=== PATIENT | female | born 1980 | race Caucasian/White ===

== ENCOUNTER 2016-08-01 18:38 | Emergency (ER) | payer SELFPAY ==
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
[2016-08-01 23:43] VITALS: BP 106/76
== END 2016-08-01 22:52 | disposition home or self-care (01) ==
LOC: ER 18:38
DX: G89.29 Other chronic pain (principal); M54.5 Low back pain; M79.7 Fibromyalgia; J06.9 Acute upper respiratory infection, unspecified; R05 Cough; R09.89 Other specified symptoms and signs involving the circulatory and respiratory systems; Z88.6 Allergy status to analgesic agent; Z88.1 Allergy status to other antibiotic agents; Z88.5 Allergy status to narcotic agent; J45.909 Unspecified asthma, uncomplicated
CPT/HCPCS: 71020; 99283

== ENCOUNTER 2016-10-10 02:35 | Emergency (ER) | payer SELFPAY ==
[2016-10-10] MEDS ORDERED: ONDANSETRON HCL INJ/PF 4 MG/2 ML SDV IV ONE (07:55)
[2016-10-10] MEDS ORDERED: ACETAMINOPHEN 325 MG TABLET PO ONE (08:06)
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
[2016-10-10 08:31] LABS: ABSOLUTE EOSINOPHILS # (AUTO) 0.1 10^3/uL (0.0-0.6); ABSOLUTE LYMPHOCYTES (AUTO) 2.4 10^3/uL (0.5-4.7); ABSOLUTE MONOCYTES (AUTO) 0.6 10^3/uL (0.1-1.4); ABSOLUTE NEUT (AUTO) 4.9 10^3/uL (1.7-8.2); BASOPHILS % (AUTO) 0.5 % (0-2); EOSINOPHILS % (AUTO) 0.7 % (0-6); LYMPHOCYTES % (AUTO) 30.6 % (13-45); MEAN CORPUSCULAR HEMOGLOBIN 31.1 pg (27.0-33.4); MEAN CORPUSCULAR HGB CONC 34.1 g/dL (32.0-36.0); MEAN CORPUSCULAR VOLUME 91 fl (80-97); MONOCYTES % (AUTO) 7.2 % (3-13); RED BLOOD COUNT 4.18 10^6/uL (3.72-5.28); RED CELL DISTRIBUTION WIDTH 12.1 % (11.5-14.0)
[2016-10-10 08:46] LABS: ALANINE AMINOTRANSFERASE 22 U/L (9-52); ALKALINE PHOSPHATASE 60 U/L (38-126); ANION GAP 12 (5-19); ASPARTATE AMINO TRANSFERASE 15 U/L (14-36); BILIRUBIN,DIRECT 0.2 mg/dL (0.0-0.4); BILIRUBIN,TOTAL 0.3 mg/dL (0.2-1.3); BLOOD UREA NITROGEN 11 mg/dL (7-20); CALCIUM 9.2 mg/dL (8.4-10.2); CARBON DIOXIDE 25 mmol/L (22-30); CHLORIDE 107 mmol/L (98-107); GLUCOSE 95 mg/dL (75-110); LIPASE 176.6 U/L (23-300); POTASSIUM 4.5 mmol/L (3.6-5.0); SODIUM 143.7 mmol/L (137-145); TOTAL PROTEIN 6.8 g/dL (6.3-8.2)
[2016-10-10 11:06] VITALS: BP 90/73
== END 2016-10-10 10:45 | disposition home or self-care (01) ==
LOC: ER 02:35
DX: R11.2 Nausea with vomiting, unspecified (principal); M54.6 Pain in thoracic spine; Y04.2XXA Assault by strike against or bumped into by another person, initial encounter; Z88.6 Allergy status to analgesic agent; Z88.1 Allergy status to other antibiotic agents; Z88.5 Allergy status to narcotic agent; Z88.8 Allergy status to other drugs, medicaments and biological substances; J45.909 Unspecified asthma, uncomplicated
CPT/HCPCS: 99284; 96374; 36415; 83690; 85025; 80053; 72070; J2405

== ENCOUNTER 2016-10-30 00:05 | Emergency (ER) | payer SELFPAY ==
[2016-10-30] MEDS ORDERED: FENTANYL CITRATE INJ/PF 100 MCG/2 ML AMPUL IV ONE (00:48)
[2016-10-30] MEDS ORDERED: DIPH/PERTUSS(ACELL)/TETANUS VAC/PF 0.5 ML SYR (>=10YO) IM ONE (00:49)
[2016-10-30] MEDS ORDERED: LIDOCAINE 1%/EPINEPHRINE INJ 20 ML VIAL INJ ONE (00:49)
[2016-10-30] MEDS ORDERED: MIDAZOLAM 2 MG/2 ML INJ IV ONE (01:38)
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
[2016-10-30] MEDS ORDERED: ACETAMINOPHEN 325 MG TABLET PO ONE ×2 (03:39→11:23)
[2016-10-30 11:36] VITALS: BP 110/76
== END 2016-10-30 11:48 | disposition home or self-care (01) ==
LOC: ER 00:05
PROC: 0HQ1XZZ Repair Face Skin, External Approach (ICD-10-PCS; principal; 2016-10-30)
DX: S01.81XA Laceration without foreign body of other part of head, initial encounter (principal); R51 Headache; M25.531 Pain in right wrist; M79.641 Pain in right hand; W10.9XXA Fall (on) (from) unspecified stairs and steps, initial encounter; F10.129 Alcohol abuse with intoxication, unspecified; F41.9 Anxiety disorder, unspecified; J45.909 Unspecified asthma, uncomplicated; Z88.6 Allergy status to analgesic agent; Z88.1 Allergy status to other antibiotic agents; Z88.5 Allergy status to narcotic agent; Z88.8 Allergy status to other drugs, medicaments and biological substances
CPT/HCPCS: 99284; 96374; 73130; 73110; 70450; 72125; 12014; J2250; J3010; J3490

== ENCOUNTER 2016-11-30 15:27 | Emergency (ER) | payer SELFPAY ==
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
[2016-11-30 18:24] LABS: ABSOLUTE EOSINOPHILS # (AUTO) 0.1 10^3/uL (0.0-0.6); ABSOLUTE MONOCYTES (AUTO) 0.7 10^3/uL (0.1-1.4); ABSOLUTE NEUT (AUTO) 6.2 10^3/uL (1.7-8.2); BASOPHILS % (AUTO) 0.3 % (0-2); EOSINOPHILS % (AUTO) 0.7 % (0-6); HEMATOCRIT 43.3 % (36.0-47.0); HEMOGLOBIN 14.5 g/dL (12.0-15.5); HGB HCT DIFFERENCE 0.2; LYMPHOCYTES % (AUTO) 22.6 % (13-45); MEAN CORPUSCULAR HEMOGLOBIN 31.3 pg (27.0-33.4); MEAN CORPUSCULAR HGB CONC 33.6 g/dL (32.0-36.0); MEAN CORPUSCULAR VOLUME 93 fl (80-97); MONOCYTES % (AUTO) 7.4 % (3-13); RED BLOOD COUNT 4.64 10^6/uL (3.72-5.28)
[2016-11-30 18:28] LABS: APPEARANCE,URINE SLIGHTLY-CLOUDY; BILIRUBIN,URINE NEGATIVE (NEGATIVE); GLUCOSE, URINE NEGATIVE (NEGATIVE); KETONES,URINE NEGATIVE (NEGATIVE); LEUKOCYTE ESTERASE,URINE NEGATIVE (NEGATIVE); NITRITE,URINE NEGATIVE (NEGATIVE); PROTEIN,URINE NEGATIVE (NEGATIVE); URINE SPECIFIC GRAVITY 1.027; UROBILINOGEN,URINE NEGATIVE mg/dL (<2.0)
[2016-11-30 18:36] LABS: ALANINE AMINOTRANSFERASE 25 U/L (9-52); ALBUMIN 4.7 g/dL (3.5-5.0); ALKALINE PHOSPHATASE 74 U/L (38-126); ANION GAP 14 (5-19); ASPARTATE AMINO TRANSFERASE 21 U/L (14-36); BILIRUBIN,DIRECT 0.4 mg/dL (0.0-0.4); BILIRUBIN,TOTAL 0.7 mg/dL (0.2-1.3); BLOOD UREA NITROGEN 13 mg/dL (7-20); CALCIUM 9.8 mg/dL (8.4-10.2); CARBON DIOXIDE 25 mmol/L (22-30); CHLORIDE 103 mmol/L (98-107); CREATININE RESULT 0.94 mg/dL (0.52-1.25); GLUCOSE 92 mg/dL (75-110); POTASSIUM 4.1 mmol/L (3.6-5.0); SODIUM 141.8 mmol/L (137-145)
[2016-11-30] MEDS ORDERED: ONDANSETRON 4 MG TAB.RAPDIS PO ONE (20:34)
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
[2016-11-30] MEDS ORDERED: ONDANSETRON ODT 4 MG TAB (6 TAB/DSPK) PO PRN (22:13)
[2016-11-30 22:43] VITALS: BP 121/82
== END 2016-11-30 22:35 | disposition home or self-care (01) ==
LOC: ER 15:27
DX: K62.5 Hemorrhage of anus and rectum (principal); R11.10 Vomiting, unspecified; R19.7 Diarrhea, unspecified
CPT/HCPCS: 99283; 36415; 84703; 85025; 80053; 81001; S0119

== ENCOUNTER 2017-08-20 10:50 | Emergency (ER) | payer MEDICAID ==
--- NOTE | 2017-08-20 11:56 | ER Document Report ---
ED Medical Screen (RME) - General Chief Complaint: Abdominal Pain Stated Complaint: ABDOMINAL PAIN,LIGHT VAGINAL BLEEDING Time Seen by Provider: 08/20/17 11:46 Notes: 37 y.o. F with a h/o multiple miscarriages presents emergency department stating that she 6 weeks by dates and is now complaining of lower abdominal pain and pink vaginal discharge. Has not yet had an ultrasound. TRAVEL OUTSIDE OF THE [place] IN LAST 30 DAYS: No - Related Data Allergies/Adverse Reactions: aspirin Allergy (Verified 08/20/17 10:51) cephalexin [From Keflex] Allergy (Verified 08/20/17 10:51) clindamycin Allergy (Verified 08/20/17 10:51) hydrocodone Allergy (Verified 08/20/17 10:51) levofloxacin [From Levaquin] Allergy (Verified 08/20/17 10:51) naproxen Allergy (Verified 08/20/17 10:51) sulfamethoxazole [From Bactrim] Allergy (Verified 08/20/17 10:51) tramadol Allergy (Verified 08/20/17 10:51) trimethoprim [From Bactrim] Allergy (Verified 08/20/17 10:51) Past Medical History - General Information source: Patient - Social History Chew tobacco use (# tins/day): No Frequency of alcohol use: None Drug Abuse: None Pulmonary Medical History: Reports: Hx Asthma Renal/ Medical History: Reports: Hx Ectopic . Denies: Hx Peritoneal Dialysis GI Medical History: Reports: Hx Irritable Bowel Musculoskeltal Medical History: Reports Hx Fibromyalgia Psychiatric Medical History: Reports: Hx Bipolar Disorder Past Surgical History: Reports: Hx Oral Surgery - wisdom - Immunizations Immunizations up to date: Yes Hx Diphtheria, Pertussis, Tetanus Vaccination: Yes Review of Systems - Review of Systems Gastrointestinal: See HPI Genitourinary: See HPI Physical Exam - Vital signs Vitals: Temp Pulse Resp BP Pulse Ox 98.8 F 82 20 113/74 100 08/20/17 11:02 08/20/17 11:02 08/20/17 11:02 08/20/17 11:02 08/20/17 11:02 - Notes Notes: Alert, anxious, otherwise no distress. Mild left lower quadrant abdominal pain while sitting. No rebound. Course - Vital Signs Vital signs: Temp Pulse Resp BP Pulse Ox 98.8 F 82 20 113/74 100 02/06/18 11:02 08/20/17 11:02 08/20/17 11:02 08/20/17 11:02 08/20/17 11:02
[2017-08-20 12:18] LABS: ABSOLUTE BASOPHILS # (AUTO) 0.1 10^3/uL (0.0-0.2); ABSOLUTE EOSINOPHILS # (AUTO) 0.1 10^3/uL (0.0-0.6); ABSOLUTE LYMPHOCYTES (AUTO) 2.2 10^3/uL (0.5-4.7); ABSOLUTE MONOCYTES (AUTO) 0.5 10^3/uL (0.1-1.4); ABSOLUTE NEUT (AUTO) 5.7 10^3/uL (1.7-8.2); BASOPHILS % (AUTO) 0.6 % (0-2); EOSINOPHILS % (AUTO) 0.8 % (0-6); HEMATOCRIT 39.7 % (36.0-47.0); HEMOGLOBIN 13.6 g/dL (12.0-15.5); LYMPHOCYTES % (AUTO) 25.6 % (13-45); MEAN CORPUSCULAR HEMOGLOBIN 32.3 pg (27.0-33.4); MEAN CORPUSCULAR HGB CONC 34.1 g/dL (32.0-36.0); MEAN CORPUSCULAR VOLUME 95 fl (80-97); PLATELET COUNT 356 10^3/uL (150-450); RED BLOOD COUNT 4.19 10^6/uL (3.72-5.28); RED CELL DISTRIBUTION WIDTH 12.7 % (11.5-14.0); TOTAL CELLS COUNTED % (AUTO) 100 %; WHITE BLOOD COUNT 8.5 10^3/uL (4.0-10.5)
[2017-08-20 12:41] LABS: ALANINE AMINOTRANSFERASE 33 U/L (9-52); ALBUMIN 4.6 g/dL (3.5-5.0); ALKALINE PHOSPHATASE 60 U/L (38-126); ANION GAP 11 (5-19); ASPARTATE AMINO TRANSFERASE 29 U/L (14-36); BILIRUBIN,DIRECT 0.4 mg/dL (0.0-0.4); BILIRUBIN,TOTAL 0.4 mg/dL (0.2-1.3); BLOOD UREA NITROGEN 8 mg/dL (7-20); CALCIUM 10.3 mg/dL (8.4-10.2); CARBON DIOXIDE 27 mmol/L (22-30); CHLORIDE 101 mmol/L (98-107); GLUCOSE 81 mg/dL (75-110); LIPASE 200.5 U/L (23-300); POTASSIUM 4.2 mmol/L (3.6-5.0); SODIUM 138.8 mmol/L (137-145); TOTAL PROTEIN 7.5 g/dL (6.3-8.2)
--- NOTE | 2017-08-20 12:44 | ER Document Report ---
ED GI/ - General Chief Complaint: Abdominal Pain Stated Complaint: ABDOMINAL PAIN,LIGHT VAGINAL BLEEDING Time Seen by Provider: 08/20/17 11:46 Mode of Arrival: Ambulatory Information source: Patient Notes: Patient is currently 6 weeks . Patient reports lower abdominal pain with a pink vaginal discharge. Patient does report some urinary frequency and diarrhea. Patient denies any fever, nausea, or vomiting. TRAVEL OUTSIDE OF THE [place] IN LAST 30 DAYS: No - HPI Patient complains to provider of: Pelvic pain Onset: Other - 2 days Timing/Duration: Gradual Quality of pain: Cramping Pain Level: 4 Context: Location: Pelvis Vaginal bleeding (Compared to normal period): Spotting Menstrual period history: Sexual history: Active Associated symptoms: Diarrhea, Urinary frequency. denies: Dysuria, Fever, Nausea, Urinary hesitancy, Urinary retention, Vomiting Exacerbated by: Denies Relieved by: Denies Recently seen / treated by doctor: No - Related Data Allergies/Adverse Reactions: aspirin Allergy (Verified 08/20/17 10:51) cephalexin [From Keflex] Allergy (Verified 08/20/17 10:51) clindamycin Allergy (Verified 08/20/17 10:51) hydrocodone Allergy (Verified 08/20/17 10:51) levofloxacin [From Levaquin] Allergy (Verified 08/20/17 10:51) naproxen Allergy (Verified 08/20/17 10:51) sulfamethoxazole [From Bactrim] Allergy (Verified 08/20/17 10:51) tramadol Allergy (Verified 08/20/17 10:51) trimethoprim [From Bactrim] Allergy (Verified 08/20/17 10:51) Past Medical History - General Information source: Patient Last Menstrual Period: 6 weeks - Social History Smoking Status: Former Smoker Chew tobacco use (# tins/day): No Frequency of alcohol use: None Drug Abuse: None Occupation: None Lives with: Friend Family History: Reviewed & Not Pertinent Patient has suicidal ideation: No Patient has homicidal ideation: No Pulmonary Medical History: Reports: Hx Asthma Renal/ Medical History: Reports: Hx Ectopic . Denies: Hx Peritoneal Dialysis GI Medical History: Reports: Hx Irritable Bowel Musculoskeltal Medical History: Reports Hx Fibromyalgia Psychiatric Medical History: Reports: Hx Bipolar Disorder Past Surgical History: Reports: Hx Oral Surgery - wisdom - Immunizations Immunizations up to date: Yes Hx Diphtheria, Pertussis, Tetanus Vaccination: Yes Review of Systems - Review of Systems Constitutional: No symptoms reported. denies: Fever, Recent illness EENT: No symptoms reported Cardiovascular: No symptoms reported. denies: Chest pain Respiratory: No symptoms reported. denies: Cough, Short of breath Gastrointestinal: Abdominal pain, Diarrhea. denies: Nausea, Vomiting Genitourinary: Frequency. denies: Dysuria, Flank pain Female Genitourinary: , Vaginal bleeding - Spotting Musculoskeletal: No symptoms reported. denies: Back pain Skin: No symptoms reported Hematologic/Lymphatic: No symptoms reported Neurological/Psychological: No symptoms reported Physical Exam - Vital signs Vitals: Temp Pulse Resp BP Pulse Ox 98.8 F 82 20 113/74 100 08/20/17 11:02 08/20/17 11:02 08/20/17 11:02 08/20/17 11:02 08/20/17 11:02 - General General appearance: Appears well, Alert In distress: None - HEENT Head: Normocephalic Eyes: Normal Conjunctiva: Normal Nasal: Normal Mouth/Lips: Normal Mucous membranes: Normal Neck: Normal, Supple. No: Lymphadenopathy - Respiratory Respiratory status: No respiratory distress Chest status: Nontender Breath sounds: Normal. No: Rales, Rhonchi, Stridor, Wheezing Chest palpation: Normal - Cardiovascular Rhythm: Regular Heart sounds: S1 appreciated, S2 appreciated Murmur: No - Abdominal Inspection: Normal Distension: No distension Bowel sounds: Normal Tenderness: Tender - Left lower pelvic Organomegaly: No organomegaly - Back Back: Normal, Nontender. No: CVA tenderness - Extremities General upper extremity: Normal inspection, Normal strength General lower extremity: Normal inspection, Normal strength - Neurological Neuro grossly intact: Yes Cognition: Normal Henrry Coma Scale Eye Opening: Spontaneous [place] Coma Scale Verbal: Oriented [place] Coma Scale Motor: Obeys Commands [place] Coma Scale Total: 15 - Psychological Associated symptoms: Normal affect, Normal mood - Skin Skin Temperature: Warm Skin Moisture: Dry Skin Color: Normal Course - Re-evaluation Re-evalutation: 08/20/17 14:30 Patient's abdomen soft, no guarding. Patient nontoxic in appearance. Patient presents with abdominal pain without signs of peritonitis or other life- threatening or serious etiology. Patient appears stable for discharge and has been instructed to return immediately if the symptoms worsen in any way, or in 8 -12 hours if not improved for reevaluation. The patient has been instructed to return if the symptoms worsen or change in any way. Patient advised of ultrasound findings and need for close follow-up with SUPPLEMENTAL NURSE provider. Patient educated on process for repeat blood work in 2 days. Patient encouraged to get a repeat ultrasound to further evaluate status. Pt given ectopic precautions. - Vital Signs Vital signs: Temp Pulse Resp BP Pulse Ox 98.4 F 80 20 116/77 100 08/20/17 15:01 08/20/17 15:01 08/20/17 11:02 08/20/17 15:01 08/20/17 15:01 - Laboratory Result Diagrams: 08/20/17 12:10 08/20/17 12:10 Laboratory results interpreted by me: 08/20/17 08/20/17 12:10 13:59 Calcium 10.3 H Beta HCG, Quant 81463.00 H Urine Ascorbic Acid 40 H Labs- Entire Visit 08/20/17 08/20/17 08/20/17 12:05 12:10 12:10 WBC 8.5 RBC 4.19 Hgb 13.6 Hct 39.7 MCV 95 MCH 32.3 MCHC 34.1 RDW 12.7 Plt Count 356 Seg Neutrophils % 67.0 Lymphocytes % 25.6 Monocytes % 6.0 Eosinophils % 0.8 Basophils % 0.6 Absolute Neutrophils 5.7 Absolute Lymphocytes 2.2 Absolute Monocytes 0.5 Absolute Eosinophils 0.1 Absolute Basophils 0.1 Sodium 138.8 Potassium 4.2 Chloride 101 Carbon Dioxide 27 Anion Gap 11 BUN 8 Creatinine 0.59 Est GFR ( Amer) > 60 Est GFR (Non-Af Amer) > 60 Glucose 81 Calcium 10.3 H Total Bilirubin 0.4 Direct Bilirubin 0.4 Neonat Total Bilirubin Not Reportable Neonat Direct Bilirubin Not Reportable Neonat Indirect Bili Not Reportable AST 29 ALT 33 Alkaline Phosphatase 60 Total Protein 7.5 Albumin 4.6 Lipase 200.5 Beta HCG, Quant 17781.00 H Total Beta HCG POSITIVE Urine Color Urine Appearance Urine pH Ur Specific [place] Urine Protein Urine Glucose (UA) Urine Ketones Urine Blood Urine Nitrite Urine Bilirubin Urine Urobilinogen Ur Leukocyte Esterase Urine WBC (Auto) Urine RBC (Auto) Urine Bacteria (Auto) Squamous Epi Cells Auto Urine Mucus (Auto) Urine Ascorbic Acid Chlamydia DNA (PCR) NOT DETECTED N.gonorrhoeae DNA (PCR) NOT DETECTED Blood Type Rhogam Indicated 08/20/17 08/20/17 12:10 13:59 WBC RBC Hgb Hct MCV MCH MCHC RDW Plt Count Seg Neutrophils % Lymphocytes % Monocytes % Eosinophils % Basophils % Absolute Neutrophils Absolute Lymphocytes Absolute Monocytes Absolute Eosinophils Absolute Basophils Sodium Potassium Chloride Carbon Dioxide Anion Gap BUN Creatinine Est GFR ( Amer) Est GFR (Non-Af Amer) Glucose Calcium Total Bilirubin Direct Bilirubin Neonat Total Bilirubin Neonat Direct Bilirubin Neonat Indirect Bili AST ALT Alkaline Phosphatase Total Protein Albumin Lipase Beta HCG, Quant Total Beta HCG Urine Color YELLOW Urine Appearance SLIGHTLY-CLOUDY Urine pH 7.0 Ur Specific [place] 1.023 Urine Protein NEGATIVE Urine Glucose (UA) NEGATIVE Urine Ketones NEGATIVE Urine Blood NEGATIVE Urine Nitrite NEGATIVE Urine Bilirubin NEGATIVE Urine Urobilinogen NEGATIVE Ur Leukocyte Esterase NEGATIVE Urine WBC (Auto) 3 Urine RBC (Auto) 2 Urine Bacteria (Auto) 1+ Squamous Epi Cells Auto 2 Urine Mucus (Auto) FEW Urine Ascorbic Acid 40 H Chlamydia DNA (PCR) N.gonorrhoeae DNA (PCR) Blood Type O POSITIVE Rhogam Indicated RHOGAM NOT INDICATED - Diagnostic Test Radiology reviewed: Reports reviewed Discharge - Discharge Clinical Impression: test positive Abdominal pain Qualifiers: Abdominal location: unspecified location Qualified Code(s): R10.9 - Unspecified abdominal pain Condition: Stable Disposition: HOME, SELF-CARE Instructions: Abdominal Pain ([facility]), Ectopic Precaution ([facility]) Additional Instructions: Return immediately for any new or worsening symptoms Followup with your primary care provider, call tomorrow to make a followup appointment Return in 2 days to the outpatient laboratory to have a repeat blood draw. You will need to have a repeat ultrasound in a week to reevaluate your status. Return immediately for any increased pain, fever, vaginal bleeding, or any concerning symptoms. Forms: Follow-Up Laboratory Testing Referrals: [facility] [Provider Group] - Follow up as needed [facility] [NO LOCAL MD] - Follow up tomorrow
[2017-08-20 14:02] LABS: CHLAM PCR NOT DETECTED (NOT DETECT); GON PCR NOT DETECTED (NOT DETECT)
--- NOTE | 2017-08-20 14:12 | RADIOLOGY REPORT (SQ) ---
EXAM DESCRIPTION: U/S OB TRANSVAG W/DOPPLER COMPLETED DATE/TIME: 08/20/2017 1:55 pm REASON FOR STUDY: 6 wks preg, vaginal bleeding, low abd pain COMPARISON: None. TECHNIQUE: Endovaginal static and realtime grayscale images acquired of the pelvis. Additional selec rikki spectral and color Doppler images recorded. All images stored on PACs. C,356 LIMITATIONS: Adnexa not well seen due to pelvic bowel gas FINDINGS: UTERUS: No masses. No anomalies. Uterus measures 9 5 x 4.5 cm size GESTATIONAL SAC: A gestational sac is present with surrounding decidual reaction, by mean sac diamete r, estimated age should be 7 weeks 4 days. YOLK SAC: A tiny 2 mm yolk sac is identified. POLE: Difficult to identify. RIGHT ADNEXA: Not well seen. LEFT ADNEXA: Not well seen. FREE FLUID: None. OTHER: No other significant finding. IMPRESSION: Abnormal first-trimester OB ultrasound. There is a gestational sac with decidual reaction measuring 7 weeks 4 days. No embryo is identified. 2 mm yolk sac identified. This may represent a blighted ovum. Pseudo gestational sac from ectopic could not entirely be excluded Continued close clinical followup with serial beta HCG and repeat ultrasound recommended Trimester of : First - 0 to 13 weeks. TECHNICAL DOCUMENTATION: JOB ID: [id number] [employer]- All Rights Reserved
[2017-08-20 14:20] LABS: APPEARANCE,URINE SLIGHTLY-CLOUDY; BILIRUBIN,URINE NEGATIVE (NEGATIVE); COLOR,URINE YELLOW; GLUCOSE, URINE NEGATIVE (NEGATIVE); KETONES,URINE NEGATIVE (NEGATIVE); LEUKOCYTE ESTERASE,URINE NEGATIVE (NEGATIVE); NITRITE,URINE NEGATIVE (NEGATIVE); PROTEIN,URINE NEGATIVE (NEGATIVE); URINE SPECIFIC GRAVITY 1.023; UROBILINOGEN,URINE NEGATIVE mg/dL (<2.0)
[2017-08-20 15:02] VITALS: BP 116/77
== END 2017-08-20 15:19 | disposition home or self-care (01) ==
LOC: ER 10:50
DX: O26.891 Other specified pregnancy related conditions, first trimester (principal); R10.2 Pelvic and perineal pain; R19.7 Diarrhea, unspecified; R35.0 Frequency of micturition; O26.851 Spotting complicating pregnancy, first trimester; O99.511 Diseases of the respiratory system complicating pregnancy, first trimester; J45.909 Unspecified asthma, uncomplicated; O28.4 Abnormal radiological finding on antenatal screening of mother; Z3A.01 Less than 8 weeks gestation of pregnancy; Z87.891 Personal history of nicotine dependence; Z88.6 Allergy status to analgesic agent; Z88.1 Allergy status to other antibiotic agents; Z88.5 Allergy status to narcotic agent; Z88.8 Allergy status to other drugs, medicaments and biological substances
CPT/HCPCS: 36415; 76817; 80053; 81001; 83690; 84702; 85025; 86900; 86901; 87491; 87591; 93976; 99284

== ENCOUNTER 2017-09-09 08:40 | Day surgery (SDC) | payer MEDICAID ==
[2017-09-09 09:21] LABS: APPEARANCE,URINE SLIGHTLY-CLOUDY; BILIRUBIN,URINE NEGATIVE (NEGATIVE); COLOR,URINE YELLOW; GLUCOSE, URINE NEGATIVE (NEGATIVE); KETONES,URINE NEGATIVE (NEGATIVE); LEUKOCYTE ESTERASE,URINE NEGATIVE (NEGATIVE); NITRITE,URINE NEGATIVE (NEGATIVE); PROTEIN,URINE NEGATIVE (NEGATIVE); URINE SPECIFIC GRAVITY 1.014; UROBILINOGEN,URINE NEGATIVE mg/dL (<2.0)
[2017-09-09 09:26] LABS: HEMATOCRIT 38.4 % (36.0-47.0); HEMOGLOBIN 13.1 g/dL (12.0-15.5); MEAN CORPUSCULAR HEMOGLOBIN 32.2 pg (27.0-33.4); MEAN CORPUSCULAR HGB CONC 34.1 g/dL (32.0-36.0); MEAN CORPUSCULAR VOLUME 94 fl (80-97); PLATELET COUNT 282 10^3/uL (150-450); RED BLOOD COUNT 4.07 10^6/uL (3.72-5.28); RED CELL DISTRIBUTION WIDTH 12.5 % (11.5-14.0); WHITE BLOOD COUNT 6.6 10^3/uL (4.0-10.5)
[2017-09-09] MEDS ORDERED: METOCLOPRAMIDE HCL INJ/PF 10 MG/2 ML SDV ONE (09:47)
[2017-09-09] MEDS ORDERED: FAMOTIDINE INJ/PF 20 MG/2 ML SDV IV ONE (09:47)
[2017-09-09] MEDS ORDERED: MIDAZOLAM 2 MG/2 ML INJ ONE ×2 (09:47→10:34)
[2017-09-09] MEDS ORDERED: ALBUTEROL SULFATE 0.083% NEB 2.5 MG/3 ML AMPUL NEB ONE (09:51)
[2017-09-09] MEDS ORDERED: FENTANYL CITRATE INJ/PF 100 MCG/2 ML AMPUL ONE (10:34)
[2017-09-09] MEDS ORDERED: EPHEDRINE SULFATE INJ 50 MG/1 ML AMPULE ONE (10:34)
[2017-09-09] MEDS ORDERED: OXYTOCIN 10 UNIT/ML VIAL ONE (10:34)
[2017-09-09] MEDS ORDERED: PROPOFOL INJ 200 MG/20 ML VIAL IV ONE (10:35)
[2017-09-09] MEDS ORDERED: MISOPROSTOL 0.2 MG TABLET ONE ×2 (11:21→11:23)
[2017-09-09] MEDS ORDERED: FENTANYL CITRATE INJ/PF 100 MCG/2 ML AMPUL IV PRN ×3 (11:23)
[2017-09-09] MEDS: FENTANYL CITRATE INJ/PF 100 MCG/2 ML AMPUL ONE ×2 (11:40→11:45)
--- NOTE | 2017-09-09 11:48 | OPERATIVE REPORT E ---
Operative Report NAME: RIDDHI DAY : 1980 AGE: 37Y DATE OF SURGERY: 09/09/2017 ROOM: PREOPERATIVE DIAGNOSIS: Missed AB. POSTOPERATIVE DIAGNOSIS: Missed AB. PROCEDURE: Suction D and C. SURGEON: AGUSTIN HOLLY M.D. ANESTHESIA: Dr. Fierro with general. FINDINGS: Copious amount of products of conception and a uterus that sounded to approximately 12 cm. COMPLICATIONS: None. ESTIMATED BLOOD LOSS: 50 mL. SPECIMENS REMOVED: Products of conception. PROCEDURE IN DETAIL: Patient was taken to the operating room, prepared and draped in a normal sterile fashion in dorsal lithotomy position under sterile conditions. In-and-out cath was performed of approximately 150 mL of clear urine. The sterile speculum was then placed into the vagina and the cervix was grasped on the anterior lip with a single-tooth tenaculum. The uterus was then sounded to 12 cm. The cervix was then dilated to accommodate an 8 mm curved and the curved curette was then gently used to suction curettage the endometrial contents including the products of conception through the suction. A sharp Kevorkian curette was introduced to ensure that the products of conception were completely removed and there was 360 degrees of grit obtained with the sharp curette. The suction was passed once more just to ensure that all products were encountered for. There was a small amount of bleeding at the end of the procedure; therefore, 800 mcg of Cytotec (misoprostol) were placed into the rectum and the bleeding did slow considerably. The patient tolerated the procedure well. Sponge, lap and needle counts were correct x2. All instruments were removed without difficulty and the patient was taken to recovery in stable condition. DICTATING PHYSICIAN: AGUSTIN HOLLY M.D. [id number] PHY#: [id number] ID: [id number] JOB#: [id number] ACCT: [id number] cc:AGUSTIN HOLLY M.D. >
[2017-09-09] MEDS ORDERED: IBUPROFEN 800 MG TABLET PO PRN (12:03)
[2017-09-09] MEDS ORDERED: HYDROMORPHONE HCL INJ/PF 2 MG/ML AMPULE IM PRN (12:03)
[2017-09-09] MEDS ORDERED: OXYCODONE-ACETAMINOPHEN 5-325 MG TABLET PO PRN ×2 (12:04)
[2017-09-09 14:32] VITALS: BP 131/92
[2017-09-09] MEDS ORDERED: LIDOCAINE 2% INJ-PF (20 MG/ML) 2 ML AMPUL ONE (16:24)
[2017-09-09] MEDS ORDERED: SUCCINYLCHOLINE CHLORIDE INJ 200 MG/10 ML VIAL ONE (16:24)
[2017-09-09] MEDS ORDERED: GLYCOPYRROLATE INJ 0.4 MG/2 ML VIAL ONE (16:24)
[2017-09-09] MEDS ORDERED: DEXAMETHASONE SOD PHOSPHATE INJ 4 MG/1 ML VIAL ONE (16:24)
[2017-09-09] MEDS ORDERED: ONDANSETRON HCL INJ/PF 4 MG/2 ML SDV ONE (16:24)
== END 2017-09-09 14:15 | disposition home or self-care (01) ==
LOC: OROUT 08:40
PROVIDERS: ATTEND Obstetrics & Gynecology
PROC: 10D17ZZ Extraction of Products of Conception, Retained, Via Natural or Artificial Opening (ICD-10-PCS; principal; 2017-09-09 10:30)
DX: O02.1 Missed abortion (principal); J45.909 Unspecified asthma, uncomplicated; G40.909 Epilepsy, unspecified, not intractable, without status epilepticus; Z79.51 Long term (current) use of inhaled steroids; Z79.899 Other long term (current) drug therapy; Z91.040 Latex allergy status; Z88.8 Allergy status to other drugs, medicaments and biological substances
CPT/HCPCS: 36415; 85027; 81001; 88305 ×2; 94640; 59820; J2250; J1100; J3010; J3490 ×2; J2765; J0330; J2405; J2704; S0028; 1965; J2590

== ENCOUNTER 2017-09-25 16:06 | Emergency (ER) | payer MEDICAID | END 2017-09-25 16:43 | disposition left against medical advice (07) | LOC: ER 16:06 | DX: Z53.21 Procedure and treatment not carried out due to patient leaving prior to being seen by health care provider (principal); R10.9 Unspecified abdominal pain ==

== ENCOUNTER 2017-10-18 21:10 | Emergency (ER) | payer MEDICAID ==
[2017-10-18 22:06] LABS: APPEARANCE,URINE CLEAR; BILIRUBIN,URINE NEGATIVE (NEGATIVE); COLOR,URINE YELLOW; GLUCOSE, URINE NEGATIVE (NEGATIVE); KETONES,URINE TRACE mg/dL (NEGATIVE); LEUKOCYTE ESTERASE,URINE SMALL (NEGATIVE); NITRITE,URINE NEGATIVE (NEGATIVE); PROTEIN,URINE 30 mg/dL (NEGATIVE); URINE SPECIFIC GRAVITY 1.033; UROBILINOGEN,URINE NEGATIVE mg/dL (<2.0)
--- NOTE | 2017-10-18 22:23 | RADIOLOGY REPORT (SQ) ---
EXAM DESCRIPTION: CHEST SINGLE VIEW COMPLETED DATE/TIME: 10/18/2017 10:02 pm REASON FOR STUDY: sob COMPARISON: 08/01/2016 EXAM PARAMETERS: NUMBER OF VIEWS: One view. TECHNIQUE: Single frontal radiographic view of the chest acquired. RADIATION DOSE: NA LIMITATIONS: None. FINDINGS: LUNGS AND PLEURA: No opacities, masses or pneumothorax. No pleural effusion. MEDIASTINUM AND HILAR STRUCTURES: No masses. Contour normal. HEART AND VASCULAR STRUCTURES: Heart normal in size. Normal vasculature. BONES: No acute findings. HARDWARE: None in the chest. OTHER: No other significant finding. IMPRESSION: NO ACUTE RADIOGRAPHIC FINDING IN THE CHEST. TECHNICAL DOCUMENTATION: JOB ID: [id number] [employer]- All Rights Reserved Reading location - IP/workstation name: [email or web address]
[2017-10-18 22:31] LABS: ABSOLUTE BASOPHILS # (AUTO) 0.1 10^3/uL (0.0-0.2); ABSOLUTE EOSINOPHILS # (AUTO) 0.1 10^3/uL (0.0-0.6); ABSOLUTE LYMPHOCYTES (AUTO) 3.1 10^3/uL (0.5-4.7); ABSOLUTE MONOCYTES (AUTO) 0.6 10^3/uL (0.1-1.4); ABSOLUTE NEUT (AUTO) 4.8 10^3/uL (1.7-8.2); BASOPHILS % (AUTO) 0.8 % (0-2); HEMOGLOBIN 13.2 g/dL (12.0-15.5); MEAN CORPUSCULAR HEMOGLOBIN 31.8 pg (27.0-33.4); MEAN CORPUSCULAR HGB CONC 33.8 g/dL (32.0-36.0); MEAN CORPUSCULAR VOLUME 94 fl (80-97); MONOCYTES % (AUTO) 6.9 % (3-13); PLATELET COUNT 341 10^3/uL (150-450); RED BLOOD COUNT 4.13 10^6/uL (3.72-5.28); RED CELL DISTRIBUTION WIDTH 12.7 % (11.5-14.0); SEGMENTED NEUTROPHILS % (AUTO) 55.3 % (42-78); TOTAL CELLS COUNTED % (AUTO) 100 %; WHITE BLOOD COUNT 8.7 10^3/uL (4.0-10.5)
[2017-10-18] MEDS ORDERED: BENZONATATE 100 MG CAPSULE PO ONE (22:34)
[2017-10-18] MEDS ORDERED: NITROFURANTOIN MONOHYD/M-CRYST 100 MG CAPSULE PO ONE (22:35)
[2017-10-18] MEDS ORDERED: LIDOCAINE 5% (700 MG) TRANSDERMAL ADH..PATCH TP ONE (22:35)
[2017-10-18] MEDS ORDERED: IBUPROFEN 600 MG TABLET PO ONE (22:35)
[2017-10-18] MEDS ORDERED: OXYMETAZOLINE HCL 0.05% NASAL SPRAY 15 ML BOTTLE NASL ONE (22:35)
--- NOTE | 2017-10-18 22:39 | ER Document Report ---
ED General - General Chief Complaint: Shortness Of Breath Stated Complaint: TROUBLE BREATHING Time Seen by Provider: 10/18/17 21:48 Cannot obtain history due to: Uncooperative Notes: Patient is a 37-year-old female who presents with multiple complaints. She is complaining of cough, sinus pressure, sore throat, body aches, dizziness, nausea , dysuria, as well as vaginal bleeding that has been ongoing for the past 6 weeks status post D&C. Patient is unable to clarify which of these multitude of complaints this prompted her to come to the emergency department today. She states that she has been using multiple [id number] remedies and none of them are helping her symptoms. She states that Percocet has helped with similar symptoms in the past. She has been able to tolerate oral fluids without difficulty. She denies recorded fever at home. She is uncertain whether or not she has sick contacts. She has not seen a primary care doctor regarding today's concerns. TRAVEL OUTSIDE OF THE [place] IN LAST 30 DAYS: No - Related Data Allergies/Adverse Reactions: haloperidol [From Haldol] Allergy (Severe, Verified 09/09/17 09:31) ziprasidone [From Geodon] Allergy (Severe, Verified 09/09/17 09:31) aspirin Allergy (Verified 09/09/17 09:31) cephalexin [From Keflex] Allergy (Verified 09/09/17 09:31) clindamycin Allergy (Verified 09/09/17 09:31) hydrocodone Allergy (Verified 09/09/17 09:31) hydroxyzine [From Vistaril] Allergy (Verified 09/09/17 09:31) latex Allergy (Verified 09/09/17 09:37) levofloxacin [From Levaquin] Allergy (Verified 09/09/17 09:31) naproxen Allergy (Verified 09/09/17 09:31) sulfamethoxazole [From Bactrim] Allergy (Verified 09/09/17 09:31) tramadol Allergy (Verified 09/09/17 09:31) trimethoprim [From Bactrim] Allergy (Verified 09/09/17 09:31) citalopram [From Celexa] Adverse Reaction (Verified 09/09/17 09:31) Past Medical History - General Information source: Patient - Social History Smoking Status: Former Smoker Chew tobacco use (# tins/day): No Frequency of alcohol use: None Drug Abuse: None Lives with: Family Family History: Reviewed & Not Pertinent Patient has suicidal ideation: No Patient has homicidal ideation: No - Past Medical History Cardiac Medical History: Denies: Hx Coronary Artery Disease, Hx Heart Attack, Hx Hypertension Pulmonary Medical History: Reports: Hx Asthma, Hx Pneumonia - WALKING PNEUMONIA YEARS AGO Denies: Hx Bronchitis, Hx COPD Neurological Medical History: Reports: Hx Seizures. Denies: Hx Cerebrovascular Accident Renal/ Medical History: Reports: Hx Ectopic . 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 HENT: Positive for sore throat. Eyes: Negative for visual changes. Cardiovascular: Negative for chest pain. Respiratory: Negative for shortness of breath. Positive for cough Gastrointestinal: Positive for abdominal cramping Genitourinary: Positive for dysuria. Musculoskeletal: Negative for back pain. Skin: Negative for rash. Neurological: Negative for headaches, weakness or numbness. 10 point ROS negative except as marked above and in HPI. Physical Exam - Vital signs Vitals: Temp Pulse Resp BP Pulse Ox 98.0 F 89 19 126/81 H 100 10/18/17 21:35 10/18/17 21:35 10/18/17 21:35 10/18/17 21:35 10/18/17 21:35 Interpretation: Normal Notes: PHYSICAL EXAMINATION: GENERAL: Well-appearing, well-nourished and in no acute distress. HEAD: Atraumatic, normocephalic. EYES: Pupils equal round and reactive to light, extraocular movements intact, sclera anicteric, conjunctiva are normal. ENT: nares patent, oropharynx clear without exudates. Moist mucous membranes. Nasal congestion. NECK: Normal range of motion, supple without lymphadenopathy LUNGS: Breath sounds clear to auscultation bilaterally and equal. No wheezes rales or rhonchi. HEART: Regular rate and rhythm without murmurs ABDOMEN: Soft, nontender, normoactive bowel sounds. No guarding, no rebound. No masses appreciated. EXTREMITIES: Normal range of motion, no pitting or edema. No cyanosis. NEUROLOGICAL: No focal neurological deficits. Moves all extremities spontaneously and on command. PSYCH: Anxious, tearful SKIN: Warm, Dry, normal turgor, no rashes or lesions noted. Course - Re-evaluation Re-evalutation: 10/18/17 22:38 Patient presents with multiple vague complaints that did not appear to be concerning for any acute life-threatening pathology. Vitals are within normal limits at triage and at time of discharge. Physical examination is unremarkable. Patient has tolerated oral intake without difficulty. Patient was not noted to be in distress at any point during their ER visit. At this time, based on the reassuring evaluation, I do not suspect an acute WA, pulmonary embolus, aortic dissection, acute intra-abdominal pathology, stroke, or sepsis. Patient is complaining of intermittent ongoing vaginal bleeding since she had a D&C and I will start her to follow-up with [facility] [facility] regarding this concern. She is bleeding through 1-2 pads daily currently denies any active bleeding at the time of my assessment. Chest x-ray is clear. Patient's urinalysis does demonstrate findings consistent with possible urinary tract infection and she does admit to dysuria. She has been started on nitrofurantoin. Will discharge with return precautions and follow-up recommendations. Verbal discharge instructions given a the bedside and opportunity for questions given. Medication warnings reviewed. Patient is in agreement with this plan and has verbalized understanding of return precautions and the need for primary care follow-up in the next 24-72 hours. - Vital Signs Vital signs: Temp Pulse Resp BP Pulse Ox 98.4 F 72 16 126/77 H 100 10/18/17 23:47 10/18/17 23:47 10/18/17 23:47 10/18/17 23:47 10/18/17 23:47 - Laboratory Result Diagrams: 10/18/17 22:20 10/18/17 22:20 Laboratory results interpreted by me: 10/18/17 10/18/17 21:45 22:20 Carbon Dioxide 21 L Urine Protein 30 H Urine Ketones TRACE H Urine Blood LARGE H Ur Leukocyte Esterase SMALL H Urine Ascorbic Acid 40 H - Diagnostic Test Radiology reviewed: Image reviewed, Reports reviewed Radiology results interpreted by me: 10/18/17 22:39 Chest x-ray: No acute infiltrate or pneumothorax Discharge - Discharge Clinical Impression: Nasal congestion, Vaginal bleeding Upper respiratory infection Qualifiers: URI type: unspecified viral URI Qualified Code(s): J06.9 - Acute upper respiratory infection, unspecified UTI (urinary tract infection) Qualifiers: Urinary tract infection type: acute cystitis Hematuria presence: with hematuria Qualified Code(s): N30.01 - Acute cystitis with hematuria Condition: Good Disposition: HOME, SELF-CARE Additional Instructions: Your chest x-ray and labs are normal today. Your nasal congestion and cough are likely secondary to a viral upper respiratory infection. You may use the Afrin that you were sent home with as needed for nasal congestion per bottle instructions. You may use ibuprofen or Tylenol as needed for pain. Please follow-up in the women's clinic regarding your ongoing vaginal bleeding. Take the antibiotic that is been prescribed for a urinary tract infection until completion. Return if you develop a fever greater than 101F, persistent vomiting, worsening pain, pass out, or have any other symptoms that are worrisome to you. Prescriptions: Nitrofurantoin/Nitrofuran Mac [Macrobid 100 mg Capsule] 1 tab PO BID #10 capsule Referrals: AGUSTIN HOLLY MD [ACTIVE STAFF] - Follow up in 3-5 days
[2017-10-18 22:47] LABS: ANION GAP 13 (5-19); CALCIUM 9.5 mg/dL (8.4-10.2); CARBON DIOXIDE 21 mmol/L (22-30); CHLORIDE 106 mmol/L (98-107); GLUCOSE 98 mg/dL (75-110); SODIUM 139.7 mmol/L (137-145)
[2017-10-18 22:53] LABS: BLOOD UREA NITROGEN 12 mg/dL (7-20)
[2017-10-18 22:54] LABS: POTASSIUM 4.7 mmol/L (3.6-5.0)
[2017-10-18 23:51] VITALS: BP 126/77
== END 2017-10-18 23:51 | disposition home or self-care (01) ==
LOC: ER 21:10
DX: N30.01 Acute cystitis with hematuria (principal); J06.9 Acute upper respiratory infection, unspecified; R09.81 Nasal congestion; N93.8 Other specified abnormal uterine and vaginal bleeding; Z88.0 Allergy status to penicillin; Z88.6 Allergy status to analgesic agent; Z91.040 Latex allergy status; Z88.3 Allergy status to other anti-infective agents
CPT/HCPCS: 99285; 36415; 87086; 84703; 85025; 80048; 81001; 71045; J3490 ×4; J8499

== ENCOUNTER 2017-12-31 09:45 | Emergency (ER) | payer MEDICAID ==
[2017-12-31 10:30] LABS: BACTERIA (WET MOUNT) 4+ BACTERIA SEEN; EPITHELIALS (WET MOUNT) 3+ EPITHELIALS SEEN; RBCS (WET MOUNT) NO RBCS SEEN; T.VAGINALIS (WET MOUNT) NO TRICHOMONAS SEEN; WBCS (WET MOUNT) 3+ WBCS SEEN; YEAST (WET MOUNT) YEAST SEEN
[2017-12-31 10:38] LABS: APPEARANCE,URINE CLEAR; BILIRUBIN,URINE NEGATIVE (NEGATIVE); COLOR,URINE STRAW; GLUCOSE, URINE NEGATIVE (NEGATIVE); KETONES,URINE NEGATIVE (NEGATIVE); LEUKOCYTE ESTERASE,URINE MODERATE (NEGATIVE); NITRITE,URINE NEGATIVE (NEGATIVE); PROTEIN,URINE NEGATIVE (NEGATIVE); URIC ACID CRYSTALS,URINE FEW /HPF; URINE SPECIFIC GRAVITY 1.004; UROBILINOGEN,URINE NEGATIVE mg/dL (<2.0)
--- NOTE | 2017-12-31 10:39 | ER Document Report ---
HPI - HPI Patient complains to provider of: Cough 3 weeks, urinary symptoms Onset: Other - 3 weeks Onset/Duration: Persistent Quality of pain: Achy Pain Level: 4 Context: Patient presents complaining of occasionally productive cough for the past 3 weeks. Patient is uncertain if she may have had a fever. Patient also complains of burning with urination. Patient states that she was prescribed Macrobid from December 17- but states that she did not take the full course of antibiotics. Associated Symptoms: Productive cough, Other - Dysuria. denies: Chest pain, Fever Exacerbated by: Denies Relieved by: Denies Similar symptoms previously: Yes Recently seen / treated by doctor: No - ROS ROS below otherwise negative: Yes Systems Reviewed and Negative: Yes All other systems reviewed and negative - CONSTITUTIONAL Constitutional: DENIES: Fever - EENT EENT: DENIES: Sore Throat - NEURO Neurology: DENIES: Headache - CARDIOVASCULAR Cardiovascular: DENIES: Chest pain - RESPIRATORY Respiratory: REPORTS: Coughing - GASTROINTESTINAL Gastrointestinal: DENIES: Abdominal Pain, Nausea, Patient vomiting - URINARY Urinary: REPORTS: Dysuria - REPRODUCTIVE Reproductive: DENIES: : - MUSCULOSKELETAL Musculoskeletal: DENIES: Back Pain - DERM Skin Color: Normal Skin Problems: None Past Medical History - General Information source: Patient - Social History Smoking Status: Never Smoker Frequency of alcohol use: None Drug Abuse: None Occupation: None Lives with: Friend Family History: Reviewed & Not Pertinent Patient has suicidal ideation: No Patient has homicidal ideation: No - Past Medical History Cardiac Medical History: Denies: Hx Coronary Artery Disease, Hx Heart Attack, Hx Hypertension Pulmonary Medical History: Reports: Hx Asthma, Hx Pneumonia - WALKING PNEUMONIA YEARS AGO Denies: Hx Bronchitis, Hx COPD Neurological Medical History: Reports: Hx Seizures. Denies: Hx Cerebrovascular Accident Renal/ Medical History: Reports: Hx Ectopic . 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 IN LAST 30 DAYS: No - HEENT HEENT: Atraumatic, Normal ENT Exam, Normocephalic. negative: Pharyngeal Exudate , Pharyngeal Tenderness, Pharyngeal Erythema, Tympanic Membrane Red, Tympanic Membrane Bulging - NECK Neck: Normal Inspection, Supple. negative: Lymphadenopathy-Left, Lymphadenopathy-Right - RESPIRATORY Respiratory: No Respiratory Distress, Other - Occasional dry cough. negative: Rales, Rhonchi, Wheezing - CARDIOVASCULAR Cardiovascular: Regular Rate, Regular Rhythm. negative: Tachycardia - GI/ABDOMEN Gastrointestinal: Abdomen Soft, Abdomen Non-Tender, No Organomegaly, Normal Bowel Sounds - BACK Back: CVA Tenderness-Right - MUSCULOSKELETAL/EXTREMETIES Musculoskeletal/Extremeties: MAEW, FROM - NEURO Level of Consciousness: Awake, Alert, Appropriate Motor/Sensory: No Motor Deficit - DERM Integumentary: Warm, Dry, No Rash Course - Re-evaluation Re-evalutation: 12/31/17 11:32 Patient's wet prep demonstrates positive bacterial vaginosis as well as vaginal yeast candidiasis. Patient does complain of urinary symptoms and a urine culture is pending, we will add doxycycline to cover given patient's extensive list of allergies and recent use of Macrobid. Chest x-ray reviewed, no concern for pneumonia at this time. - Vital Signs Vital signs: Temp Pulse Resp BP Pulse Ox 98.7 F 84 16 120/83 99 12/31/17 09:50 12/31/17 09:50 12/31/17 09:50 12/31/17 09:50 12/31/17 09:50 - Laboratory Laboratory results interpreted by me: 12/31/17 11:33 Labs- Entire Visit 12/31/17 12/31/17 10:08 10:15 Urine Color STRAW Urine Appearance CLEAR Urine pH 6.0 Ur Specific [place] 1.004 Urine Protein NEGATIVE Urine Glucose (UA) NEGATIVE Urine Ketones NEGATIVE Urine Blood SMALL H Urine Nitrite NEGATIVE Urine Bilirubin NEGATIVE Urine Urobilinogen NEGATIVE Ur Leukocyte Esterase MODERATE H Urine WBC (Auto) 3 Urine RBC (Auto) 10 Urine Bacteria (Auto) TRACE Squamous Epi Cells Auto 4 Uric Acid Cryst (Auto) FEW Urine Mucus (Auto) RARE Urine Ascorbic Acid NEGATIVE Urine HCG, Qual NEGATIVE Epi Cells (Wet Prep) 3+ EPITHELIALS SEEN Bacteria (Wet Prep) 4+ BACTERIA SEEN Trichomonas (Wet Prep) NO TRICHOMONAS SEEN Vaginal WBC 3+ WBCS SEEN Vaginal RBC NO RBCS SEEN Vaginal Yeast YEAST SEEN - Diagnostic Test Radiology reviewed: Pending, Image reviewed Discharge - Discharge Clinical Impression: Bacterial vaginosis, Vagina, candidiasis, Bronchitis UTI (urinary tract infection) Qualifiers: Urinary tract infection type: site unspecified Hematuria presence: with hematuria Qualified Code(s): N39.0 - Urinary tract infection, site not specified Condition: Stable Disposition: HOME, SELF-CARE Instructions: Bronchitis ([facility]), Inhaled Bronchodilators ([facility]), Urinary Tract Infection ([facility]), Vaginal Yeast Infection ([facility]), Vaginosis, Bacterial ([facility]) Additional Instructions: Return immediately for any new or worsening symptoms Followup with your primary care provider, call tomorrow to make a followup appointment Prescriptions: Albuterol Sulfate [Ventolin Hfa] 2 puff IH Q4HP PRN #17 gm PRN Reason: Doxycycline Hyclate 100 mg PO BID #20 capsule Fluconazole [Diflucan] 150 mg PO ONCE PRN #1 tablet PRN Reason: Metronidazole [Flagyl 500 mg Tablet] 500 mg PO BID #14 tablet Referrals: [facility] [Provider Group] - Follow up as needed [facility] [Provider Group] - Follow up as needed
[2017-12-31] MEDS ORDERED: DOXYCYCLINE HYCLATE 100 MG TABLET PO ONE (11:31)
[2017-12-31] MEDS ORDERED: FLUCONAZOLE 100 MG TABLET PO ONE (11:32)
--- NOTE | 2017-12-31 11:37 | RADIOLOGY REPORT (SQ) ---
EXAM DESCRIPTION: CHEST 2 VIEWS COMPLETED DATE/TIME: 12/31/2017 10:47 am REASON FOR STUDY: cough COMPARISON: None. EXAM PARAMETERS: NUMBER OF VIEWS: two views TECHNIQUE: Digital Frontal and Lateral radiographic views of the chest acquired. RADIATION DOSE: NA LIMITATIONS: none FINDINGS: LUNGS AND PLEURA: No opacities, masses or pneumothorax. No pleural effusion. MEDIASTINUM AND HILAR STRUCTURES: No masses or contour abnormalities. HEART AND VASCULAR STRUCTURES: Heart normal size. No evidence for failure. BONES: No acute findings. HARDWARE: None in the chest. OTHER: No other significant finding. IMPRESSION: NO ACUTE RADIOGRAPHIC FINDING IN THE CHEST. TECHNICAL DOCUMENTATION: JOB ID: [id number] [employer]- All Rights Reserved Reading location - IP/workstation name: [email or web address]
[2017-12-31 12:00] VITALS: BP 125/80
[2017-12-31 12:03] LABS: CHLAM PCR NOT DETECTED (NOT DETECT); GON PCR NOT DETECTED (NOT DETECT)
== END 2017-12-31 12:00 | disposition home or self-care (01) ==
LOC: ER 09:45
DX: N39.0 Urinary tract infection, site not specified (principal); J40 Bronchitis, not specified as acute or chronic; N76.0 Acute vaginitis; B96.89 Other specified bacterial agents as the cause of diseases classified elsewhere; B37.3 Candidiasis of vulva and vagina
CPT/HCPCS: 99283; 87086; 87210; 81025; 81001; 87491; 87591; 71046; J3490 ×2

== ENCOUNTER 2018-01-30 11:49 | Emergency (ER) | payer MEDICAID ==
--- NOTE | 2018-01-30 12:04 | ER Document Report ---
ED Medical Screen (RME) - General Chief Complaint: Psych Problem Stated Complaint: IVC WITH PAPERS Time Seen by Provider: 01/30/18 11:59 Notes: RAPID MEDICAL EVALUATION DISCLOSURE I have seen this patient as part of a Rapid Medical Evaluation and, if applicable, placed any initially appropriate orders. The patient will be seen and fully evaluated, including a full history and physical exam, by a provider ( in Main ED or Fast Track) when a room becomes available. 37F here w [place] under IVC paperwork (taken out by Dr Hanks at [facility]) for SI. She expressed thoughts of suicide and has a plan to walk out in front of traffic but states that she decided she would not do so. Denies HI hallucinations. TRAVEL OUTSIDE OF THE [place] IN LAST 30 DAYS: No - Related Data Allergies/Adverse Reactions: haloperidol [From Haldol] Allergy (Severe, Verified 01/30/18 11:56) ziprasidone [From Geodon] Allergy (Severe, Verified 01/30/18 11:56) aspirin Allergy (Verified 01/30/18 11:56) cephalexin [From Keflex] Allergy (Verified 01/30/18 11:56) clindamycin Allergy (Verified 01/30/18 11:56) hydrocodone Allergy (Verified 01/30/18 11:56) hydroxyzine [From Vistaril] Allergy (Verified 01/30/18 11:56) latex Allergy (Verified 01/30/18 11:56) levofloxacin [From Levaquin] Allergy (Verified 01/30/18 11:56) naproxen Allergy (Verified 01/30/18 11:56) sulfamethoxazole [From Bactrim] Allergy (Verified 01/30/18 11:56) tramadol Allergy (Verified 01/30/18 11:56) trimethoprim [From Bactrim] Allergy (Verified 01/30/18 11:56) citalopram [From Celexa] Adverse Reaction (Verified 01/30/18 11:56) Past Medical History - Past Medical History Cardiac Medical History: Denies: Hx Coronary Artery Disease, Hx Heart Attack, Hx Hypertension Pulmonary Medical History: Reports: Hx Asthma, Hx Pneumonia - WALKING PNEUMONIA YEARS AGO Denies: Hx Bronchitis, Hx COPD Neurological Medical History: Reports: Hx Seizures. Denies: Hx Cerebrovascular Accident Renal/ Medical History: Reports: Hx Ectopic . Denies: Hx Peritoneal Dialysis GI Medical History: Reports: Hx Irritable Bowel Musculoskeltal Medical History: Reports Hx Arthritis - POLY RA, FIBROMYALGIA, Reports Hx Fibromyalgia Psychiatric Medical History: Reports: Hx Bipolar Disorder Past Surgical History: Reports: Hx Oral Surgery - wisdom - Immunizations Immunizations up to date: Yes Hx Diphtheria, Pertussis, Tetanus Vaccination: Yes History of Influenza Vaccine for 04/2017 - 09/2017 Season: No
[2018-01-30 13:03] LABS: ABSOLUTE EOSINOPHILS # (AUTO) 0.2 10^3/uL (0.0-0.6); ABSOLUTE LYMPHOCYTES (AUTO) 2.2 10^3/uL (0.5-4.7); ABSOLUTE MONOCYTES (AUTO) 0.5 10^3/uL (0.1-1.4); ABSOLUTE NEUT (AUTO) 5.7 10^3/uL (1.7-8.2); BASOPHILS % (AUTO) 0.4 % (0-2); HEMATOCRIT 36.2 % (36.0-47.0); HEMOGLOBIN 12.6 g/dL (12.0-15.5); LYMPHOCYTES % (AUTO) 25.3 % (13-45); MEAN CORPUSCULAR HEMOGLOBIN 32.9 pg (27.0-33.4); MEAN CORPUSCULAR HGB CONC 34.8 g/dL (32.0-36.0); MEAN CORPUSCULAR VOLUME 95 fl (80-97); PLATELET COUNT 263 10^3/uL (150-450); RED BLOOD COUNT 3.83 10^6/uL (3.72-5.28); SEGMENTED NEUTROPHILS % (AUTO) 66.3 % (42-78); TOTAL CELLS COUNTED % (AUTO) 100 %; WHITE BLOOD COUNT 8.6 10^3/uL (4.0-10.5)
[2018-01-30 13:18] LABS: APPEARANCE,URINE CLEAR; BILIRUBIN,URINE NEGATIVE (NEGATIVE); COLOR,URINE STRAW; GLUCOSE, URINE NEGATIVE (NEGATIVE); KETONES,URINE NEGATIVE (NEGATIVE); LEUKOCYTE ESTERASE,URINE NEGATIVE (NEGATIVE); NITRITE,URINE NEGATIVE (NEGATIVE); PROTEIN,URINE NEGATIVE (NEGATIVE); URINE SPECIFIC GRAVITY 1.004; UROBILINOGEN,URINE NEGATIVE mg/dL (<2.0)
--- NOTE | 2018-01-30 13:25 | ER Document Report ---
ED Psych Disorder / Suicide <MANNY LAZCANO - Last Filed: 01/30/18 13:38> <KATIE TRIPP - Last Filed: 01/30/18 14:42> - General Mode of Arrival: Ambulatory Information source: Patient TRAVEL OUTSIDE OF THE [place]. IN LAST 30 DAYS: No <JASON CONCEPCION - Last Filed: 01/30/18 15:24> - General Chief Complaint: Psych Problem Stated Complaint: IVC WITH PAPERS Time Seen by Provider: 01/30/18 11:59 Notes: 37-year-old female that presents to the emergency department today with complaints of suicidal ideation. Patient was initially acting like she was asleep and uncooperative. Patient also mentions lesions on her feet and genital area that she has been seen at the health department for before. (JASON CONCEPCION) - Related Data Allergies/Adverse Reactions: haloperidol [From Haldol] Allergy (Severe, Verified 01/30/18 11:56) ziprasidone [From Geodon] Allergy (Severe, Verified 01/30/18 11:56) aspirin Allergy (Verified 01/30/18 11:56) cephalexin [From Keflex] Allergy (Verified 01/30/18 11:56) clindamycin Allergy (Verified 01/30/18 11:56) hydrocodone Allergy (Verified 01/30/18 11:56) hydroxyzine [From Vistaril] Allergy (Verified 01/30/18 11:56) latex Allergy (Verified 01/30/18 11:56) levofloxacin [From Levaquin] Allergy (Verified 01/30/18 11:56) naproxen Allergy (Verified 01/30/18 11:56) sulfamethoxazole [From Bactrim] Allergy (Verified 01/30/18 11:56) tramadol Allergy (Verified 01/30/18 11:56) trimethoprim [From Bactrim] Allergy (Verified 01/30/18 11:56) citalopram [From Celexa] Adverse Reaction (Verified 01/30/18 11:56) Past Medical History - General Information source: Patient - Social History Smoking Status: Never Smoker Cigarette use (# per day): No Chew tobacco use (# tins/day): No Frequency of alcohol use: None Drug Abuse: None Lives with: Family Family History: Reviewed & Not Pertinent Patient has suicidal ideation: Yes Patient has homicidal ideation: Yes Pulmonary Medical History: Reports: Hx Asthma, Hx Pneumonia - WALKING PNEUMONIA YEARS AGO Neurological Medical History: Reports: Hx Seizures Renal/ Medical History: Reports: Hx Ectopic GI Medical History: Reports: Hx Irritable Bowel Musculoskeletal Medical History: Reports Hx Arthritis - POLY RA, FIBROMYALGIA, Reports Hx Fibromyalgia Psychiatric Medical History: Reports: Hx Bipolar Disorder Past Surgical History: Reports: Hx Oral Surgery - wisdom - Immunizations Immunizations up to date: Yes Hx Diphtheria, Pertussis, Tetanus Vaccination: Yes <JASON CONCEPCION - Last Filed: 01/30/18 15:24> Review of Systems - Review of Systems Constitutional: No symptoms reported EENT: No symptoms reported Cardiovascular: No symptoms reported Respiratory: No symptoms reported Gastrointestinal: No symptoms reported Genitourinary: No symptoms reported Female Genitourinary: No symptoms reported Musculoskeletal: No symptoms reported Skin: See HPI, Lesions Hematologic/Lymphatic: No symptoms reported Neurological/Psychological: See HPI, Suicidal ideation -: Yes All other systems reviewed and negative <JASON CONCEPCION - Last Filed: 01/30/18 15:24> Physical Exam <MANNY LAZCANO - Last Filed: 01/30/18 13:38> - Vital signs Interpretation: Normal - General General appearance: Appears well, Alert In distress: None - HEENT Head: Normocephalic, Atraumatic Eyes: Normal Pupils: PERRL - Respiratory Respiratory status: No respiratory distress - Cardiovascular Rhythm: Regular - Abdominal Inspection: Normal - Back Back: Normal - Extremities General upper extremity: Normal inspection General lower extremity: Other - See description of the feet under notes. - Neurological Neuro grossly intact: Yes - Psychological Associated symptoms: Depressed - Skin Skin Temperature: Warm Skin Moisture: Dry Skin Color: Normal <KATIE TRIPP - Last Filed: 01/30/18 14:42> <JASON CONCEPCION - Last Filed: 01/30/18 15:24> - Vital signs Vitals: Temp Pulse Resp BP Pulse Ox 98.7 F 83 14 125/87 H 99 01/30/18 11:56 01/30/18 11:56 01/30/18 11:56 01/30/18 11:56 01/30/18 11:56 - Notes Notes: When I first walked in the room, the patient presented be asleep and a ignored me. I told her that that was fine that I be back later but she suddenly open her eyes as I was walking out of the room. She states that she was sleepy. She is complaining about a lesion on her vagina that has been evaluated at the health department, I told her she can go to [facility] to review that problem. She complained about blisters on her feet from walking in wet shoes and socks. Most of those areas had blistered over and dried up and were healing nicely. There was one on the posterior right heel that had a whitish center with a dark blue dot that has not unroofed itself yet. There is no surrounding erythema. ( KATIE TRIPP) Physical Exam: General: Alert, appears well. HEENT: Normocephalic. Atraumatic. PERRLA. Extraocular movements intact. Oropharynx clear. Neck: Supple. Respiratory: No respiratory distress. Abdominal: Normal Inspection. No distension. Extremities: Moves all four extremities. Neurological: Normal cognition. AAOx4. Normal speech. Psychological: Uncooperative. Skin: see above (JASON CONCEPCION) Course - Laboratory Result Diagrams: 01/30/18 12:32 01/30/18 12:32 <MANNY LAZCANO - Last Filed: 01/30/18 13:38> - Laboratory Result Diagrams: 01/30/18 12:32 01/30/18 12:32 <KATIE TRIPP - Last Filed: 01/30/18 14:42> - Laboratory Result Diagrams: 01/30/18 12:32 01/30/18 12:32 <JASON CONCEPCION - Last Filed: 01/30/18 15:24> - Vital Signs Vital signs: Temp Pulse Resp BP Pulse Ox 98.0 F 84 16 120/68 100 01/30/18 14:30 01/30/18 14:30 01/30/18 14:30 01/30/18 14:30 01/30/18 14:30 - Laboratory Laboratory results interpreted by me: 01/30/18 01/30/18 12:32 12:32 Potassium 3.5 L Urine Blood SMALL H Salicylates < 1.0 L Acetaminophen < 10 L Discharge <MANNY LAZCANO - Last Filed: 01/30/18 13:38> <KATIE TRIPP - Last Filed: 01/30/18 14:42> <JAMEYMELOJASON - Last Filed: 01/30/18 15:24> - Discharge Clinical Impression: Homeless, Cocaine abuse Bipolar disorder, unspecified Qualifiers: Active/Remission status: remission status unspecified Qualified Code(s): F31.9 - Bipolar disorder, unspecified Blister of foot Qualifiers: Encounter type: initial encounter Laterality: unspecified laterality Qualified Code(s): S90.829A - Blister (nonthermal), unspecified foot, initial encounter Condition: Stable Disposition: HOME, SELF-CARE Additional Instructions: Cocaine Abuse: Cocaine causes many dangerous medical problems. Problems can occur even with "usual" amounts. Cocaine affects judgement, creating a sense of invulnerability. Cocaine users often make bad decisions that seem "great" at the time. Most cocaine users eventually will be hurt by bad job performance, damaged personal relations, crime, and unsafe sexual practices. Toxic effects of cocaine can include seizures, hallucinations, delusions, high blood pressure, heart damage, or sudden . There's always the risk of a "bad batch." But heart attacks, brain hemorrhages, or cardiac arrest can occur unpredictably even with "normal" use. Injection of cocaine is risky for abscesses, endocarditis (heart infection) , pneumonia, and AIDS. Withdrawal from cocaine often causes anxiety and drug cravings. Some users become paranoid and psychotic. Many treatment programs are available, but you must make the decision to quit. Medication can be prescribed to control the symptoms of cocaine toxicity (beta blockers or benzodiazepines). Withdrawal symptoms may require tranquilizers. DEPRESSION: Your evaluation reveals that you have mental depression. While symptoms may be vague, they often include disturbance of sleep, fatigue, loss of appetite , and general loss of interest in life. While depression may be a side effect of drugs, or a reaction to a major change in your life, many cases have no known cause. If depression is acute, and related to a major loss in your life, you can expect it to clear completely with time. If you have been depressed a long time , are prone to repeated bouts of depression or low mood, or have been thinking of suicide, get help. Depression can be treated with anti-depressant medication and counselling. Long-term depression will often take a few weeks to clear, even with appropriate medication. Follow-up care is important. SUICIDAL IDEATION: Suicidal ideation is a common medical term for thoughts about suicide, which may be as detailed as a formulated plan, without the suicidal act itself. Although most people who undergo suicidal ideation do not commit suicide, some go on to make suicide attempts. The range of suicidal ideation varies greatly from fleeting to detailed planning, role playing, and unsuccessful attempts. While thoughts about suicide are common, most people do not carry out serious actions to commit suicide. Based upon your evaluation and discussion with you, we do not believe you are currently at risk to act upon your thoughts of suicide. You have agreed to return to the Emergency Department, at any time , if you feel inclined to act upon your suicidal thoughts. FOLLOW-UP CARE: Please continue working with [facility] and [facility] for your continued mental health and community services upon discharge. If you experience worsening or a significant change in your symptoms, notify the physician immediately or return to the Emergency Department at any time for re-evaluation. Stop using illicit drugs. Keep your feet clean and dry. Use bacitracin ointment on any blistered areas. Follow-up with [facility] tomorrow to have your vaginal complaint evaluated. Referrals: [facility] [Outside] - Follow up in 3-5 days Scribe Attestation: 01/30/18 14:42 I personally performed the services described in the documentation, reviewed and edited the documentation which was dictated to the scribe in my presence, and it accurately records my words and actions. (KAITE TRIPP) Scribe Documentation - Scribe Written by Ha:: Ha Carbajal, 01/30/2018 1524 acting as scribe for :: Fanny <JASON CONCEPCION - Last Filed: 01/30/18 15:24>
[2018-01-30 13:29] LABS: ALANINE AMINOTRANSFERASE 24 U/L (9-52); ALKALINE PHOSPHATASE 72 U/L (38-126); ANION GAP 13 (5-19); ASPARTATE AMINO TRANSFERASE 23 U/L (14-36); BILIRUBIN,DIRECT 0.3 mg/dL (0.0-0.4); BILIRUBIN,TOTAL 0.5 mg/dL (0.2-1.3); BLOOD UREA NITROGEN 9 mg/dL (7-20); CALCIUM 9.5 mg/dL (8.4-10.2); CARBON DIOXIDE 24 mmol/L (22-30); CHLORIDE 106 mmol/L (98-107); GLUCOSE 88 mg/dL (75-110); POTASSIUM 3.5 mmol/L (3.6-5.0); SODIUM 142.6 mmol/L (137-145); TOTAL PROTEIN 7.2 g/dL (6.3-8.2)
[2018-01-30 13:30] LABS: ACETAMINOPHEN < 10 ug/mL (10-30); ALCOHOL < 10 mg/dL (NONE DETECTED); SALICYLATE < 1.0 mg/dL (2.0-20.0); URINE AMPHETAMINES SCREEN NEGATIVE; URINE BARBITURATES SCREEN NEGATIVE; URINE BENZODIAZEPINES SCREEN NEGATIVE; URINE COCAINE SCREEN UNCONFIRMED POSITIVE; URINE MARIJUANA (THC) SCREEN NEGATIVE; URINE METHADONE SCREEN NEGATIVE; URINE PHENCYCLIDINE SCREEN NEGATIVE
[2018-01-30 16:12] VITALS: BP 117/77
--- NOTE | 2018-01-30 22:55 | EKG REPORT ---
SEVERITY:- NORMAL ECG - SINUS RHYTHM : Confirmed by: Bill Elizalde 30-Jan-2018 22:54:24
== END 2018-01-30 16:15 | disposition home or self-care (01) ==
LOC: ER 11:49
DX: F31.9 Bipolar disorder, unspecified (principal); F14.10 Cocaine abuse, uncomplicated; S90.821A Blister (nonthermal), right foot, initial encounter; X58.XXXA Exposure to other specified factors, initial encounter; L98.9 Disorder of the skin and subcutaneous tissue, unspecified; J45.909 Unspecified asthma, uncomplicated; R45.851 Suicidal ideations; R45.850 Homicidal ideations; Z59.0 Homelessness; Z88.8 Allergy status to other drugs, medicaments and biological substances; Z88.6 Allergy status to analgesic agent; Z88.1 Allergy status to other antibiotic agents; Z88.5 Allergy status to narcotic agent; Z91.040 Latex allergy status
CPT/HCPCS: 36415; 80053; 80307; 81001; 84703; 85025; 93005; 93010; 99284

== ENCOUNTER 2018-03-10 12:31 | Emergency (ER) | payer MEDICAID, OTHER ==
--- NOTE | 2018-03-10 14:17 | ER Document Report ---
ED Psych Disorder / Suicide - General Chief Complaint: Psych Problem Stated Complaint: NORMA AVILES Time Seen by Provider: 03/10/18 14:09 Notes: 37-year-old female to the emergency department for evaluation of homelessness. Patient has been seen here on multiple occasions. Followed by social science research assistant. [facility] which is what [facility] company designed to help these individuals. Patient states that she is homeless. Does endorse occasional alcohol abuse. Questionable history of cocaine abuse by history. Denies any major symptoms at this time. Reportedly made a statement to someone that she was going to walk out in front of a car but this has not been said in front of this physician. Patient does complain of some burning with urination. I have greeted and performed a rapid initial assessment of this patient. A comprehensive ED assessment and evaluation of the patient, analysis of test results and completion of the medical decision making process will be conducted by additional ED providers. TRAVEL OUTSIDE OF THE [place]. IN LAST 30 DAYS: No - HPI Patient complains to provider of: Other - Homelessness - Related Data Allergies/Adverse Reactions: haloperidol [From Haldol] Allergy (Severe, Verified 03/10/18 12:34) ziprasidone [From Geodon] Allergy (Severe, Verified 03/10/18 12:34) aspirin Allergy (Verified 03/10/18 12:34) cephalexin [From Keflex] Allergy (Verified 03/10/18 12:34) clindamycin Allergy (Verified 03/10/18 12:34) hydrocodone Allergy (Verified 03/10/18 12:34) hydroxyzine [From Vistaril] Allergy (Verified 03/10/18 12:34) latex Allergy (Verified 03/10/18 12:34) levofloxacin [From Levaquin] Allergy (Verified 03/10/18 12:34) naproxen Allergy (Verified 03/10/18 12:34) sulfamethoxazole [From Bactrim] Allergy (Verified 03/10/18 12:34) tramadol Allergy (Verified 03/10/18 12:34) trimethoprim [From Bactrim] Allergy (Verified 03/10/18 12:34) citalopram [From Celexa] Adverse Reaction (Verified 03/10/18 12:34) Past Medical History - Social History Smoking Status: Current Every Day Smoker Chew tobacco use (# tins/day): No Frequency of alcohol use: Heavy Drug Abuse: None Family History: Reviewed & Not Pertinent Patient has suicidal ideation: Yes Patient has homicidal ideation: No - Past Medical History Cardiac Medical History: Denies: Hx Coronary Artery Disease, Hx Heart Attack, Hx Hypertension Pulmonary Medical History: Reports: Hx Asthma, Hx Pneumonia - WALKING PNEUMONIA YEARS AGO Denies: Hx Bronchitis, Hx COPD Neurological Medical History: Reports: Hx Seizures. Denies: Hx Cerebrovascular Accident Renal/ Medical History: Reports: Hx Ectopic . Denies: Hx Peritoneal Dialysis GI Medical History: Reports: Hx Irritable Bowel Musculoskeletal Medical History: Reports Hx Arthritis - POLY RA, FIBROMYALGIA, Reports Hx Fibromyalgia Psychiatric Medical History: Reports: Hx Bipolar Disorder, Hx Depression Past Surgical History: Reports: Hx Oral Surgery - wisdom - Immunizations Immunizations up to date: Yes Hx Diphtheria, Pertussis, Tetanus Vaccination: Yes Physical Exam - Vital signs Vitals: Temp Pulse Resp BP Pulse Ox 98.8 F 79 18 125/79 97 03/10/18 12:56 03/10/18 12:56 03/10/18 12:56 03/10/18 12:56 03/10/18 12:56 Course - Vital Signs Vital signs: Temp Pulse Resp BP Pulse Ox 98.8 F 79 18 125/79 97 03/10/18 12:56 03/10/18 12:56 03/10/18 12:56 03/10/18 12:56 03/10/18 12:56 - Laboratory Result Diagrams: 03/10/18 14:39 03/10/18 14:39 Laboratory results interpreted by me: 03/10/18 14:39 Salicylates < 1.0 L Acetaminophen < 10 L
[2018-03-10 15:08] LABS: ABSOLUTE EOSINOPHILS # (AUTO) 0.1 10^3/uL (0.0-0.6); ABSOLUTE LYMPHOCYTES (AUTO) 2.2 10^3/uL (0.5-4.7); ABSOLUTE MONOCYTES (AUTO) 0.5 10^3/uL (0.1-1.4); ABSOLUTE NEUT (AUTO) 4.7 10^3/uL (1.7-8.2); BASOPHILS % (AUTO) 0.5 % (0-2); EOSINOPHILS % (AUTO) 0.7 % (0-6); HEMATOCRIT 40.8 % (36.0-47.0); LYMPHOCYTES % (AUTO) 29.3 % (13-45); MEAN CORPUSCULAR HEMOGLOBIN 32.8 pg (27.0-33.4); MEAN CORPUSCULAR HGB CONC 34.3 g/dL (32.0-36.0); MEAN CORPUSCULAR VOLUME 96 fl (80-97); PLATELET COUNT 301 10^3/uL (150-450); RED BLOOD COUNT 4.27 10^6/uL (3.72-5.28); RED CELL DISTRIBUTION WIDTH 13.9 % (11.5-14.0); SEGMENTED NEUTROPHILS % (AUTO) 62.5 % (42-78); TOTAL CELLS COUNTED % (AUTO) 100 %; WHITE BLOOD COUNT 7.6 10^3/uL (4.0-10.5)
[2018-03-10 15:21] LABS: APPEARANCE,URINE SLIGHTLY-CLOUDY; BILIRUBIN,URINE NEGATIVE (NEGATIVE); CALCIUM OXALATE CRYSTALS,URINE FEW /HPF; COLOR,URINE YELLOW; GLUCOSE, URINE NEGATIVE (NEGATIVE); KETONES,URINE NEGATIVE (NEGATIVE); LEUKOCYTE ESTERASE,URINE NEGATIVE (NEGATIVE); NITRITE,URINE NEGATIVE (NEGATIVE); PROTEIN,URINE NEGATIVE (NEGATIVE); URINE SPECIFIC GRAVITY 1.025; UROBILINOGEN,URINE NEGATIVE mg/dL (<2.0)
[2018-03-10 15:36] LABS: ALANINE AMINOTRANSFERASE 25 U/L (9-52); ALBUMIN 4.5 g/dL (3.5-5.0); ALKALINE PHOSPHATASE 71 U/L (38-126); ANION GAP 15 (5-19); ASPARTATE AMINO TRANSFERASE 30 U/L (14-36); BILIRUBIN,DIRECT 0.3 mg/dL (0.0-0.4); BILIRUBIN,TOTAL 0.4 mg/dL (0.2-1.3); BLOOD UREA NITROGEN 8 mg/dL (7-20); CALCIUM 9.6 mg/dL (8.4-10.2); CARBON DIOXIDE 23 mmol/L (22-30); CHLORIDE 106 mmol/L (98-107); GLUCOSE 77 mg/dL (75-110); POTASSIUM 3.7 mmol/L (3.6-5.0); TOTAL PROTEIN 7.7 g/dL (6.3-8.2)
[2018-03-10 15:38] LABS: ACETAMINOPHEN < 10 ug/mL (10-30); ALCOHOL < 10 mg/dL (NONE DETECTED); SALICYLATE < 1.0 mg/dL (2.0-20.0)
[2018-03-10 15:45] LABS: URINE AMPHETAMINES SCREEN NEGATIVE; URINE BARBITURATES SCREEN NEGATIVE; URINE BENZODIAZEPINES SCREEN NEGATIVE; URINE COCAINE SCREEN UNCONFIRMED POSITIVE; URINE MARIJUANA (THC) SCREEN NEGATIVE; URINE METHADONE SCREEN NEGATIVE; URINE PHENCYCLIDINE SCREEN NEGATIVE
--- NOTE | 2018-03-10 15:46 | ER Document Report ---
ED Psych Disorder / Suicide - General Chief Complaint: Psych Problem Stated Complaint: NORMA AVILES Time Seen by Provider: 03/10/18 14:09 Notes: Patient is a 37-year-old female who presents today stating some passive suicidal ideations as well as some dysuria. She states 2 days ago she had some runny nose and congestion. She states some mild right flank pain. She denies any vomiting or diarrhea. She denies any chest pain or shortness of breath. TRAVEL OUTSIDE OF THE [place] IN LAST 30 DAYS: No - HPI Patient complains to provider of: Suicidal ideation, Other - See above Onset: Other - See above Onset was: Gradual Quality of pain: Achy Severity: Mild Pain Level: Denies Suicide Risk Factors: Other - See above Associated symptoms: Other - See above Similar symptoms previously: No Recently seen / treated by doctor: No - Related Data Allergies/Adverse Reactions: haloperidol [From Haldol] Allergy (Severe, Verified 03/10/18 12:34) ziprasidone [From Geodon] Allergy (Severe, Verified 03/10/18 12:34) aspirin Allergy (Verified 03/10/18 12:34) cephalexin [From Keflex] Allergy (Verified 03/10/18 12:34) clindamycin Allergy (Verified 03/10/18 12:34) hydrocodone Allergy (Verified 03/10/18 12:34) hydroxyzine [From Vistaril] Allergy (Verified 03/10/18 12:34) latex Allergy (Verified 03/10/18 12:34) levofloxacin [From Levaquin] Allergy (Verified 03/10/18 12:34) naproxen Allergy (Verified 03/10/18 12:34) sulfamethoxazole [From Bactrim] Allergy (Verified 03/10/18 12:34) tramadol Allergy (Verified 03/10/18 12:34) trimethoprim [From Bactrim] Allergy (Verified 03/10/18 12:34) citalopram [From Celexa] Adverse Reaction (Verified 03/10/18 12:34) Past Medical History - General Information source: Patient - Social History Smoking Status: Current Every Day Smoker Cigarette use (# per day): No Chew tobacco use (# tins/day): No Smoking Education Provided: No Frequency of alcohol use: Heavy Drug Abuse: None Family History: Reviewed & Not Pertinent Patient has suicidal ideation: Yes Patient has homicidal ideation: No - Past Medical History Cardiac Medical History: Denies: Hx Coronary Artery Disease, Hx Heart Attack, Hx Hypertension Pulmonary Medical History: Reports: Hx Asthma, Hx Pneumonia - WALKING PNEUMONIA YEARS AGO Denies: Hx Bronchitis, Hx COPD Neurological Medical History: Reports: Hx Seizures. Denies: Hx Cerebrovascular Accident Renal/ Medical History: Reports: Hx Ectopic . Denies: Hx Peritoneal Dialysis GI Medical History: Reports: Hx Irritable Bowel Musculoskeletal Medical History: Reports Hx Arthritis - POLY RA, FIBROMYALGIA, Reports Hx Fibromyalgia Psychiatric Medical History: Reports: Hx Bipolar Disorder, Hx Depression Past Surgical History: Reports: Hx Oral Surgery - wisdom - Immunizations Immunizations up to date: Yes Hx Diphtheria, Pertussis, Tetanus Vaccination: Yes Review of Systems - Review of Systems Constitutional: denies: Fever EENT: denies: Eye discharge, Nose discharge Cardiovascular: denies: Chest pain, Palpitations Respiratory: denies: Short of breath Gastrointestinal: denies: Vomiting Genitourinary: denies: Dysuria Musculoskeletal: denies: Leg swelling Skin: Other - no hives. denies: Rash Neurological/Psychological: Other - no slurred speech -: Yes All other systems reviewed and negative Physical Exam - Vital signs Vitals: Temp Pulse Resp BP Pulse Ox 98.8 F 79 18 125/79 97 03/10/18 12:56 03/10/18 12:56 03/10/18 12:56 03/10/18 12:56 03/10/18 12:56 Notes: Reviewed vital signs and nursing note as charted by RN. CONSTITUTIONAL: Alert and oriented and responds appropriately to questions. Well -appearing; well-nourished HEAD: Normocephalic; atraumatic EYES: PERRL ENT: Normal nose; no rhinorrhea; moist mucous membranes; pharynx without lesions noted NECK: Supple without meningismus; non-tender CARD: Regular rate and rhythm; no murmurs; symmetric distal pulses RESP: Normal chest excursion without splinting or tachypnea; breath sounds clear and equal bilaterally ABD/GI: Normal bowel sounds; non-distended; soft, non-tender; no palpable organomegaly or masses BACK: The back appears normal and is non-tender to palpation, there is no CVA tenderness EXT: Normal ROM in all joints; non-tender to palpation, no edema SKIN: Normal color for age and race; warm; no acute lesions noted NEURO: Moves all extremities equally; Motor and sensory function intact PSYCH: The patient's mood and manner are appropriate. Grooming and personal hygiene are appropriate. Course - Re-evaluation Re-evalutation: 03/10/18 15:44 Given the history and physical examination we will check a urine analysis. Given the patient's repeat symptoms of dysuria we will perform a pelvic exam. Patient has no flank pain or tenderness. No abdominal pain or tenderness. Pain is clean and well-kept with a clear thought process. Patient is homeless and has recently left a homeless assisted. The act steam distribution supervisor is already come to see the patient is attempting to help the patient find an occupation and also get back into the assisted. The psychology team is seen and evaluated the patient. They do not believe that the patient requires any further evaluation as they do not believe the patient is a threat of suicide attempt at this time. They will attempt to help expedite outpatient follow-up [facility] access with the act team. 03/10/18 15:58 Chemistry, urine, and cocaine drug screen as resulted. 03/10/18 17:39 Labs as recorded. Wet prep as recorded. Patient will be discharged home with strict return precautions and follow-up as an outpatient as described above. - Vital Signs Vital signs: Temp Pulse Resp BP Pulse Ox 98.8 F 79 18 125/79 97 03/10/18 12:56 03/10/18 12:56 03/10/18 12:56 03/10/18 12:56 03/10/18 12:56 - Laboratory Result Diagrams: 03/10/18 14:39 03/10/18 14:39 Laboratory results interpreted by me: 03/10/18 14:39 Salicylates < 1.0 L Acetaminophen < 10 L Discharge - Discharge Clinical Impression: Dysuria, Suicidal ideation Condition: Good Disposition: HOME, SELF-CARE Additional Instructions: Come back immediately for any increased pain with urination, any abdominal pain , any fevers or vomiting, worsening depression, auditory or visual hallucinations, or any other acute problems. Please make sure that she follow- up using [facility] services as we have discussed.
--- NOTE | 2018-03-10 16:14 | PSYCHOLOGICAL NOTE ---
Psych Note - Psych Note Psych Note: Reason for consult: suicidal ideation Patient brought in by EMS for c/o not feeling well. States that she jumped in front in traffic yesterday. States she is having back pain and tired all the time. Clinician received a phone call from patient's provider, [facility], prior to patient's arrive to [facility] ED. He who discloses the patient just was kicked out of the hotel she was staying at is currently homeless. He reports that he thinks the patient will show up at [facility] ED. He is concerned the patient is using cocaine again. He disclosed the patient has an outpatient mental health provider through [facility] and states that he will transport her to her appointment. He disclosed that this time her providers do not believe the patient needs inpatient psychiatric treatment and asks for a phone call if she shows up and is discharged. Patient was seen in [facility] Patient disclosed that she needs help and started listing medical concerns in addition to depression and being off her psychiatric medication. She denies she has a mental health provider and reports she has no support network. Patient denies substance abuse. She asks about placement at [facility]; clinician explained the patient can not use inpatient psychiatric treatment for a solution for social needs. She disclosed she has been sleeping outside and can't continue doing that. She states she is unable to return to the homeless [facility] for another 4 months; "What am I suppose to do...Where am I supposed to go?" When clinician corrected the patient on her miss represented information ( ie no provider, no support, drug use), she became "tearful" and stated she was wanted to and disclosed she tried killing herself yesterday by running into traffic. Patient did eventually confirm she is working with [facility] and that she relapsed on cocaine. Patient is alert and orientated to person,place, time and circumstance. Clinician notes the patient's mood is euthymic with congruent affect in the beginning of the evaluation; however, once she felt she was not staying she started to cry. Patient endorses passive suicidal ideation and denies homicidal ideation. Delusions are absent and behaviour is congruent with and intact reality based presentation ie organized and linear thought processes. Thought content appears to be focused on secondary gain. eye contact was well maintained. Conversational speech was within normal rate tone and prosody. attention and concentration are fair. intellectual abilities appear to be low average range. Insight, judgment and impulse control are fair. 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 Patient does not meet IVC criteria per [place] GS 122C. Patient discloses passive suicidal ideation ie no plans means or intent. Patient has a higher level of care with her ACT team through [facility]. Patient's outpatient mental health provider is [facility]. Patient is currently homeless and reports not wanting to sleep outside. Inpatient psychiatric treatment would not be appropriate for this patient. Patient presents with social issues and substance abuse (Cocaine) . Dr. Cleveland was consulted on the care and management of this patient; attending physician is in agreement with recommendations and disposition.
[2018-03-10 16:50] LABS: WBCS (WET MOUNT) NO WBCS SEEN; YEAST (WET MOUNT) NO YEAST SEEN
[2018-03-10 16:51] LABS: T.VAGINALIS (WET MOUNT) COULD NOT PERFORM
[2018-03-10 17:27] LABS: T.VAGINALIS (WET MOUNT) NO TRICHOMONAS SEEN; YEAST (WET MOUNT) NO YEAST SEEN
[2018-03-10 17:28] LABS: BACTERIA (WET MOUNT) 3+ BACTERIA SEEN; EPITHELIALS (WET MOUNT) 4+ EPITHELIALS SEEN; WBCS (WET MOUNT) FEW WBCS SEEN
[2018-03-10 18:09] VITALS: BP 127/89
[2018-03-10 18:18] LABS: CHLAM PCR NOT DETECTED (NOT DETECT); GON PCR NOT DETECTED (NOT DETECT)
--- NOTE | 2018-03-10 19:28 | EKG REPORT ---
SEVERITY:- NORMAL ECG - SINUS RHYTHM : Confirmed by: Yehuda Velarde MD 10-Mar-2018 19:26:47
== END 2018-03-10 18:09 | disposition home or self-care (01) ==
LOC: ER 12:31
DX: R30.0 Dysuria (principal); R45.851 Suicidal ideations; F32.9 Major depressive disorder, single episode, unspecified; F14.99 Cocaine use, unspecified with unspecified cocaine-induced disorder; F17.200 Nicotine dependence, unspecified, uncomplicated; Z59.0 Homelessness; Z88.6 Allergy status to analgesic agent; Z88.3 Allergy status to other anti-infective agents; Z91.040 Latex allergy status
CPT/HCPCS: 36415; 80053; 80307; 81001; 81025; 85025; 87210; 87491; 87591; 93005; 93010; 99285

== ENCOUNTER → 2018-04-08 | Outpatient (CLI) | payer MEDICAID ==
[2018-04-08 08:24] LABS: APPEARANCE,URINE CLOUDY; BILIRUBIN,URINE NEGATIVE (NEGATIVE); COLOR,URINE YELLOW; GLUCOSE, URINE NEGATIVE (NEGATIVE); KETONES,URINE NEGATIVE (NEGATIVE); LEUKOCYTE ESTERASE,URINE NEGATIVE (NEGATIVE); NITRITE,URINE NEGATIVE (NEGATIVE); PROTEIN,URINE NEGATIVE (NEGATIVE); URINE SPECIFIC GRAVITY 1.018; UROBILINOGEN,URINE NEGATIVE mg/dL (<2.0)
[2018-04-08 08:28] LABS: ABSOLUTE BASOPHILS # (AUTO) 0.1 10^3/uL (0.0-0.2); ABSOLUTE EOSINOPHILS # (AUTO) 0.1 10^3/uL (0.0-0.6); ABSOLUTE MONOCYTES (AUTO) 0.5 10^3/uL (0.1-1.4); ABSOLUTE NEUT (AUTO) 4.8 10^3/uL (1.7-8.2); BASOPHILS % (AUTO) 0.7 % (0-2); EOSINOPHILS % (AUTO) 1.1 % (0-6); HEMOGLOBIN 13.8 g/dL (12.0-15.5); LYMPHOCYTES % (AUTO) 26.5 % (13-45); MEAN CORPUSCULAR HEMOGLOBIN 32.3 pg (27.0-33.4); MEAN CORPUSCULAR HGB CONC 34.4 g/dL (32.0-36.0); MEAN CORPUSCULAR VOLUME 94 fl (80-97); MONOCYTES % (AUTO) 6.5 % (3-13); PLATELET COUNT 313 10^3/uL (150-450); RED BLOOD COUNT 4.27 10^6/uL (3.72-5.28); RED CELL DISTRIBUTION WIDTH 12.5 % (11.5-14.0); SEGMENTED NEUTROPHILS % (AUTO) 65.2 % (42-78); TOTAL CELLS COUNTED % (AUTO) 100 %; WHITE BLOOD COUNT 7.4 10^3/uL (4.0-10.5)
[2018-04-08 08:54] LABS: ALANINE AMINOTRANSFERASE 28 U/L (9-52); ALBUMIN 4.4 g/dL (3.5-5.0); ALKALINE PHOSPHATASE 69 U/L (38-126); ANION GAP 10 (5-19); ASPARTATE AMINO TRANSFERASE 18 U/L (14-36); BILIRUBIN,DIRECT 0.4 mg/dL (0.0-0.4); BILIRUBIN,TOTAL 0.5 mg/dL (0.2-1.3); BLOOD UREA NITROGEN 12 mg/dL (7-20); CALCIUM 9.9 mg/dL (8.4-10.2); CARBON DIOXIDE 25 mmol/L (22-30); CHLORIDE 106 mmol/L (98-107); CHOLESTEROL 180.94 mg/dL (0-200); GAMMA-GLUTAMYL TRANSFERASE 24 U/L (8-78); GLUCOSE 89 mg/dL (75-110); IRON(TIBC) 55.5 ug/dL (37-170); POTASSIUM 4.5 mmol/L (3.6-5.0); SODIUM 140.7 mmol/L (137-145); TOTAL PROTEIN 7.3 g/dL (6.3-8.2); TRIGLYCERIDES 107 mg/dL (<150)
[2018-04-08 09:07] LABS: DIRECT LDL 106 mg/dL (<100)
[2018-04-08 09:16] LABS: FREE T3 3.82 pg/mL (2.77-5.27); FREE T4 (FREE THYROXINE) 1.16 ng/dL (0.78-2.19)
[2018-04-08 09:29] LABS: THYROID STIMULATING HORMONE 1.71 uIU/mL (0.47-4.68)
[2018-04-08 10:32] LABS: C-REACTIVE PROTEIN < 5.0 mg/L (<10.0)
[2018-04-09 10:38] LABS: HEPATITIS C VIRUS AB <0.1 s/co ratio (0.0-0.9)
[2018-04-09 10:45] LABS: HEPATITIS B SURFACE AB QUANT >1000.0 mIU/mL (Immunity>9)
== END ==
LOC: OD 07:29
PROVIDERS: ATTEND Obstetrics & Gynecology Gynecology
DX: F31.13 Bipolar disorder, current episode manic without psychotic features, severe (principal)
CPT/HCPCS: 36415; 80053; 80061; 81001; 82607; 82746; 82977; 83036; 83090; 83540; 83550; 84439; 84443; 84481; 85025; 86140; 86317; 86592; 86701; 86803; 86804

== ENCOUNTER 2018-05-06 14:07 | Emergency (ER) | payer MEDICAID ==
[2018-05-06] MEDS ORDERED: ACETAMINOPHEN 325 MG TABLET PO ONE (15:26)
[2018-05-06] MEDS ORDERED: DIPH/PERTUSS(ACELL)/TETANUS VAC/PF 0.5 ML SYR (>=10YO) IM ONE (15:26)
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
[2018-05-06] MEDS ORDERED: OXYCODONE-ACETAMINOPHEN 5-325 MG TABLET PO ONE (16:01)
--- NOTE | 2018-05-06 16:13 | RADIOLOGY REPORT (SQ) ---
EXAM DESCRIPTION: FOREARM LEFT COMPLETED DATE/TIME: 05/06/2018 4:00 pm REASON FOR STUDY: fall fall injury left forearm pain COMPARISON: None. NUMBER OF VIEWS: Two views. TECHNIQUE: Two radiographic images acquired of the left forearm, including elbow and wrist in at [address] one projection. LIMITATIONS: None. FINDINGS: MINERALIZATION: Normal. BONES: Acute spiral fracture distal left ulna diaphysis minimally displaced. Nonangulated. No over riding of fracture fragments. No worrisome bone lesions. SOFT TISSUES: No obvious swelling or foreign body. OTHER: No other significant finding. IMPRESSION: Acute spiral fracture distal left ulna diaphysis, minimally displaced TECHNICAL DOCUMENTATION: JOB ID: [id number] [employer]- All Rights Reserved Reading location - IP/workstation name: [email or web address]
[2018-05-06 17:23] VITALS: BP 135/88
[2018-05-06] MEDS ORDERED: ONDANSETRON 4 MG TAB.RAPDIS PO ONE (17:30)
--- NOTE | 2018-05-06 18:07 | RADIOLOGY REPORT (SQ) ---
EXAM DESCRIPTION: KNEE LEFT 4 VIEW COMPLETED DATE/TIME: 05/06/2018 4:49 pm REASON FOR STUDY: fall COMPARISON: None. NUMBER OF VIEWS: Four views. TECHNIQUE: AP, lateral, and both oblique radiographic images acquired of the left knee. LIMITATIONS: None. FINDINGS: MINERALIZATION: Normal. BONES: No acute fracture or dislocation. No worrisome bone lesions. JOINT: No effusion. SOFT TISSUES: No soft tissue swelling. No radio-opaque foreign body. OTHER: No other significant finding. IMPRESSION: NEGATIVE STUDY OF THE LEFT KNEE. NO RADIOGRAPHIC EVIDENCE OF ACUTE INJURY. TECHNICAL DOCUMENTATION: JOB ID: [id number] [employer]- All Rights Reserved Reading location - IP/workstation name: [email or web address]
== END 2018-05-06 17:38 | disposition home or self-care (01) ==
LOC: ER 14:07
DX: S52.692A Other fracture of lower end of left ulna, initial encounter for closed fracture (principal); S52.502A Unspecified fracture of the lower end of left radius, initial encounter for closed fracture; S80.212A Abrasion, left knee, initial encounter; W19.XXXA Unspecified fall, initial encounter; R11.0 Nausea; K02.9 Dental caries, unspecified; J45.909 Unspecified asthma, uncomplicated
CPT/HCPCS: 99283; 90471; 73090; 73564; 90715; 29125; J3490; S0119

== ENCOUNTER 2018-06-13 06:43 | Emergency (ER) | payer MEDICAID ==
[2018-06-13] MEDS ORDERED: ONDANSETRON HCL INJ/PF 4 MG/2 ML SDV IV ONE (07:22)
[2018-06-13] MEDS ORDERED: NORMAL SALINE 1000 ML 1,000 ML IV ONE (07:22)
--- NOTE | 2018-06-13 08:19 | RADIOLOGY REPORT (SQ) ---
EXAM DESCRIPTION: CHEST 2 VIEWS COMPLETED DATE/TIME: 06/13/2018 7:34 am REASON FOR STUDY: cough COMPARISON: December 2017 EXAM PARAMETERS: NUMBER OF VIEWS: two views TECHNIQUE: Digital Frontal and Lateral radiographic views of the chest acquired. RADIATION DOSE: NA LIMITATIONS: none FINDINGS: LUNGS AND PLEURA: No opacities, masses or pneumothorax. No pleural effusion. MEDIASTINUM AND HILAR STRUCTURES: No masses or contour abnormalities. HEART AND VASCULAR STRUCTURES: Heart normal size. No evidence for failure. BONES: No acute findings. There is a minimal thoracic scoliosis convex to the right which may be pos itional in nature. HARDWARE: None in the chest. OTHER: No other significant finding. IMPRESSION: NO ACUTE RADIOGRAPHIC FINDING IN THE CHEST. TECHNICAL DOCUMENTATION: JOB ID: [id number] [employer]- All Rights Reserved Reading location - IP/workstation name: [email or web address]
[2018-06-13 10:16] LABS: APPEARANCE,URINE CLEAR; BILIRUBIN,URINE NEGATIVE (NEGATIVE); COLOR,URINE YELLOW; GLUCOSE, URINE NEGATIVE (NEGATIVE); KETONES,URINE NEGATIVE (NEGATIVE); LEUKOCYTE ESTERASE,URINE NEGATIVE (NEGATIVE); NITRITE,URINE NEGATIVE (NEGATIVE); PROTEIN,URINE NEGATIVE (NEGATIVE); UROBILINOGEN,URINE NEGATIVE mg/dL (<2.0)
[2018-06-13 10:26] LABS: URINE AMPHETAMINES SCREEN NEGATIVE; URINE BARBITURATES SCREEN NEGATIVE; URINE BENZODIAZEPINES SCREEN NEGATIVE; URINE COCAINE SCREEN UNCONFIRMED POSITIVE; URINE MARIJUANA (THC) SCREEN NEGATIVE; URINE METHADONE SCREEN NEGATIVE; URINE PHENCYCLIDINE SCREEN NEGATIVE
[2018-06-13 10:52] LABS: ABSOLUTE BASOPHILS # (AUTO) 0.1 10^3/uL (0.0-0.2); ABSOLUTE EOSINOPHILS # (AUTO) 0.1 10^3/uL (0.0-0.6); ABSOLUTE LYMPHOCYTES (AUTO) 2.6 10^3/uL (0.5-4.7); ABSOLUTE MONOCYTES (AUTO) 0.6 10^3/uL (0.1-1.4); ABSOLUTE NEUT (AUTO) 6.2 10^3/uL (1.7-8.2); BASOPHILS % (AUTO) 1.1 % (0-2); EOSINOPHILS % (AUTO) 0.8 % (0-6); HEMATOCRIT 36.9 % (36.0-47.0); HEMOGLOBIN 12.6 g/dL (12.0-15.5); LYMPHOCYTES % (AUTO) 27.3 % (13-45); MEAN CORPUSCULAR HEMOGLOBIN 31.8 pg (27.0-33.4); MEAN CORPUSCULAR HGB CONC 34.1 g/dL (32.0-36.0); MEAN CORPUSCULAR VOLUME 93 fl (80-97); MONOCYTES % (AUTO) 6.3 % (3-13); PLATELET COUNT 357 10^3/uL (150-450); RED BLOOD COUNT 3.96 10^6/uL (3.72-5.28); RED CELL DISTRIBUTION WIDTH 13.1 % (11.5-14.0); SEGMENTED NEUTROPHILS % (AUTO) 64.5 % (42-78); TOTAL CELLS COUNTED % (AUTO) 100 %; WHITE BLOOD COUNT 9.6 10^3/uL (4.0-10.5)
[2018-06-13 11:12] LABS: ALANINE AMINOTRANSFERASE 37 U/L (9-52); ALBUMIN 3.9 g/dL (3.5-5.0); ALKALINE PHOSPHATASE 82 U/L (38-126); ANION GAP 15 (5-19); ASPARTATE AMINO TRANSFERASE 30 U/L (14-36); BILIRUBIN,DIRECT 0.2 mg/dL (0.0-0.4); BILIRUBIN,TOTAL 0.4 mg/dL (0.2-1.3); BLOOD UREA NITROGEN 7 mg/dL (7-20); CALCIUM 8.8 mg/dL (8.4-10.2); CARBON DIOXIDE 22 mmol/L (22-30); CHLORIDE 109 mmol/L (98-107); GLUCOSE 86 mg/dL (75-110); LIPASE 150.3 U/L (23-300); SODIUM 145.8 mmol/L (137-145); TOTAL PROTEIN 6.7 g/dL (6.3-8.2)
[2018-06-13 11:43] LABS: CHLAM PCR NOT DETECTED (NOT DETECT); GON PCR NOT DETECTED (NOT DETECT)
[2018-06-13 12:01] LABS: BACTERIA (WET MOUNT) 3+ BACTERIA SEEN; RBCS (WET MOUNT) NO RBCS SEEN; T.VAGINALIS (WET MOUNT) NO TRICHOMONAS SEEN; WBCS (WET MOUNT) 1+ WBCS SEEN; YEAST (WET MOUNT) NO YEAST SEEN
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
[2018-06-13 15:44] VITALS: BP 121/75
== END 2018-06-13 15:48 | disposition home or self-care (01) ==
LOC: ER 06:43
DX: Z59.0 Homelessness (principal); J06.9 Acute upper respiratory infection, unspecified; M79.10 Myalgia, unspecified site; R53.1 Weakness; R19.7 Diarrhea, unspecified; R33.9 Retention of urine, unspecified
CPT/HCPCS: 99285; 96361; 96374; 36415; 87070; 87210; 87880; 83690; 85025; 81025; 86308; 80053; 81001; 80307; 87491; 87591; 71046; J2405; J7030

== ENCOUNTER 2018-06-19 04:02 | Emergency (ER) | payer SELFPAY ==
--- NOTE | 2018-06-19 04:37 | ER Document Report ---
ED Psych Disorder / Suicide - General TRAVEL OUTSIDE OF THE [place] IN LAST 30 DAYS: No <ROSALIND CAN - Last Filed: 06/19/18 06:42> <MANNY LAZCANO - Last Filed: 06/19/18 13:09> <ABE DOMINIQUE - Last Filed: 06/19/18 13:57> - General Chief Complaint: Possible Overdose Stated Complaint: POSSIBLE OVERDOSE Notes: Patient presents to the emergency department with a chief complaint of a suicide attempt. Patient states she drank alcohol this evening, took 5 300 mg Trileptal pills and then took "a couple of Benadryl's." Patient states she did this because she wanted to kill herself. Patient is currently denying homicidal ideations, auditory or visual hallucinations. Patient does appear tired but is easily arousable and conscious alert and oriented x4. Past medical history: Seizures, depression Medications: Trileptal Allergies: Haldol, aspirin, Keflex, clindamycin, Levaquin, Vistaril (ROSALIND CAN) - Related Data Allergies/Adverse Reactions: haloperidol [From Haldol] Allergy (Severe, Verified 05/06/18 14:09) ziprasidone [From Geodon] Allergy (Severe, Verified 05/06/18 14:09) aspirin Allergy (Verified 05/06/18 14:09) cephalexin [From Keflex] Allergy (Verified 05/06/18 14:09) clindamycin Allergy (Verified 05/06/18 14:09) hydrocodone Allergy (Verified 05/06/18 14:09) hydroxyzine [From Vistaril] Allergy (Verified 05/06/18 14:09) latex Allergy (Verified 05/06/18 14:09) levofloxacin [From Levaquin] Allergy (Verified 05/06/18 14:09) naproxen Allergy (Verified 05/06/18 14:09) sulfamethoxazole [From Bactrim] Allergy (Verified 05/06/18 14:09) tramadol Allergy (Verified 05/06/18 14:09) trimethoprim [From Bactrim] Allergy (Verified 05/06/18 14:09) citalopram [From Celexa] Adverse Reaction (Verified 05/06/18 14:09) Past Medical History - General Information source: Patient - Social History Smoking Status: Current Some Day Smoker Chew tobacco use (# tins/day): No Frequency of alcohol use: Social Drug Abuse: None Family History: Reviewed & Not Pertinent Patient has suicidal ideation: Yes Patient has homicidal ideation: No - Past Medical History Cardiac Medical History: Denies: Hx Coronary Artery Disease, Hx Heart Attack, Hx Hypertension Pulmonary Medical History: Reports: Hx Asthma, Hx Pneumonia - WALKING PNEUMONIA YEARS AGO Denies: Hx Bronchitis, Hx COPD Neurological Medical History: Reports: Hx Seizures. Denies: Hx Cerebrovascular Accident Renal/ Medical History: Reports: Hx Ectopic . Denies: Hx Peritoneal Dialysis GI Medical History: Reports: Hx Irritable Bowel Musculoskeletal Medical History: Reports Hx Arthritis - POLY RA, FIBROMYALGIA, Reports Hx Fibromyalgia Psychiatric Medical History: Reports: Hx Bipolar Disorder, Hx Depression Past Surgical History: Reports: Hx Oral Surgery - wisdom - Immunizations Immunizations up to date: Yes Hx Diphtheria, Pertussis, Tetanus Vaccination: Yes <ROSALIND CAN - Last Filed: 06/19/18 06:42> Review of Systems - Review of Systems Constitutional: No symptoms reported EENT: No symptoms reported Cardiovascular: No symptoms reported Respiratory: No symptoms reported Gastrointestinal: No symptoms reported Genitourinary: No symptoms reported Female Genitourinary: No symptoms reported Musculoskeletal: No symptoms reported Skin: No symptoms reported Hematologic/Lymphatic: No symptoms reported Neurological/Psychological: See HPI <ROSALIND CAN - Last Filed: 06/19/18 06:42> Physical Exam <ROSALIND CAN - Last Filed: 06/19/18 06:42> <MANNY LAZCANO - Last Filed: 06/19/18 13:09> <ABE DOMINIQUE - Last Filed: 06/19/18 13:57> - Vital signs Vitals: Temp Pulse Resp BP Pulse Ox 97.7 F 91 18 104/65 97 06/19/18 04:36 06/19/18 04:36 06/19/18 04:36 06/19/18 04:36 06/19/18 04:36 - Notes Notes: GENERAL: Alert, interacts well. No acute distress. Sleeping upon initial exam, easily arousable conscious alert and oriented x4. HEAD: Normocephalic, atraumatic. EYES: Pupils equal, round, and reactive to light. Extraocular movements intact. ENT: Oral mucosa moist, tongue midline. NECK: Full range of motion. Supple. Trachea midline. LUNGS: Clear to auscultation bilaterally, no wheezes, rales, or rhonchi. No respiratory distress. HEART: Regular rate and rhythm. No murmur ABDOMEN: Soft, non-tender. Non-distended. Bowel sounds present in all 4 quadrants. EXTREMITIES: Moves all 4 extremities spontaneously. No edema, normal radial and dorsalis pedis pulses bilaterally. No cyanosis. BACK: no cervical, thoracic, lumbar midline tenderness. No saddle anesthesia, normal distal neurovascular exam. NEUROLOGICAL: Alert and oriented x4. Normal speech. cranial nerves II through XII grossly intact no LOC no necPSYCH: Normal affect, normal mood. SKIN: Warm, dry, normal turgor. No rashes or lesions noted. (ROSALIND CAN) Course - Laboratory Result Diagrams: 06/19/18 04:55 06/19/18 04:55 <ROSALIND CAN - Last Filed: 06/19/18 06:42> - Laboratory Result Diagrams: 06/19/18 04:55 06/19/18 04:55 <MANNY LAZCANO - Last Filed: 06/19/18 13:09> - Laboratory Result Diagrams: 06/19/18 04:55 06/19/18 04:55 <ABE DOMINIQUE - Last Filed: 06/19/18 13:57> - Re-evaluation Re-evalutation: 06/19/18 05:49 Discussed case with poison control case #[id number]. They state to observe the patient for seizures. To get an EKG. To get an initial Tylenol level and then to get a repeat Tylenol level in 4 hours. States if the rest of the labs come back with no abnormalities the patient can be medically cleared in 4-6 hours from her supposed overdose. 06/19/18 06:41 As long as Pt. continues to stay stable and her repeat APAP level is negative she can be medically cleared at 10:00am. Pt. report and care transferred to Claus Dominique NP. (ROSALIND CAN) Report received at 0715 by EV[facility] Can. vitals stable, pt in no distress. Awaiting for pysch eval. 1000- Tylenol level normal. awaiting for psych. Any suicidal ideation, without ideation, has no plan. Or patient has remained seizure-free. I have reevaluated this patient multiple times and no significant life threatening changes, no signs of toxicity, sepsis or peritonitis are noted. The patient and I have discussed the diagnosis and risks, and we agree with discharging home and close follow-up. We also discussed returning to the Emergency Department immediately if new or worsening symptoms occur with the understanding that symptoms and presentations can change. At this time will discharge with return precautions and follow-up recommendations. Verbal discharge instructions given a the bedside and opportunity for questions given. We have discussed the symptoms which are most concerning (e.g., fevers, confusion, abdominal pain, Medication warnings reviewed. All questions and concerns answered by this provider. Patient is in agreement with this plan and has verbalized understanding of return precautions and the need for primary care follow-up in the next 24-72 hours. Patient verbalized understanding of plan of care and agree with plan of care. 06/19/18 13:43 (ABE DOMINIQUE) - Vital Signs Vital signs: Temp Pulse Resp BP Pulse Ox 97.7 F 91 15 91/61 L 97 06/19/18 04:36 06/19/18 04:36 06/19/18 11:01 06/19/18 11:01 06/19/18 11:01 - Laboratory Laboratory results interpreted by me: 06/19/18 06/19/18 06/19/18 04:55 05:30 08:37 Sodium 149.5 H Chloride 111 H Urine Blood SMALL H Salicylates < 1.0 L Acetaminophen < 10 L < 10 L Discharge <ROSALIND CAN - Last Filed: 06/19/18 06:42> <MANNY LAZCANO - Last Filed: 06/19/18 13:09> <ABE DOMINIQUE - Last Filed: 06/19/18 13:57> - Discharge Clinical Impression: Homeless single person, Cocaine abuse, Alcohol abuse Depression Qualifiers: Depression Type: unspecified Qualified Code(s): F32.9 - Major depressive disorder, single episode, unspecified Condition: Stable Disposition: HOME, SELF-CARE Additional Instructions: You have been evaluated both medical and behavioral health teams and been deemed appropriate for discharge. You are highly encouraged to seek substance abuse treatment in addition to your's mental health treatment. You are recommended to follow-up with your current providers, [facility], for your continued outpatient services. ACUTE ALCOHOL INTOXICATION and ALCOHOL ABUSE: Your evaluation revealed very high levels of alcohol. You can from drinking a large amount of alcohol rapidly! Further, there's the risk of falls , traffic accidents, and fights. A high portion (about 50 percent) of the serious injuries seen in hospital emergency rooms are caused by alcohol. Alcohol overdosage is usually due to an underlying emotional or psychiatric problem. You may benefit from counselling. If "binge" drinking is an ongoing problem for you, or if you drink ANY AMOUNT of alcohol EVERY day, you most likely have a tendency to alcoholism. You should avoid alcohol totally. We can refer you for treatment. Persons with alcohol problems are often also prone to other addictions -- you should discuss any use of medications or drugs with the doctor. You should be watched at home for the next several hours by someone who has not been drinking. Get extra fluids for the next 24 hours. Call the doctor if there is repeated vomiting, increasing headache, decreasing level of alertness, or any other worsening. CHRONIC ALCOHOLISM and ALCOHOL ABUSE: Your evaluation reveals evidence of chronic alcoholism, an addiction to alcohol. The tendency to alcoholism may be inherited. Chronic use of alcohol weakens muscles, causes fatty deposits in the liver , damages the stomach, makes you more prone to infections, and can cause defects in unborn children. In the long run, brain atrophy and cirrhosis of the liver result. You are also at greater risk for certain types of cancer, such as cancer of the mouth, throat, stomach, and liver. Counselling services are available to help you. In-hospital treatment programs often help. Support groups such as Alcoholics Anonymous can be very useful in beating this addiction. Your physician can make a referral for you. As alcoholics often are prone to other addictions, you should discuss your use of any other medications with the doctor. ALCOHOL WITHDRAWAL: Your symptoms are caused by alcohol withdrawal. After a period of frequent drinking, the brain and body are changed by the alcohol. When you quit or reduce your drinking, the nervous system becomes unstable. Withdrawal symptoms can start a few hours after your last drink, but sometimes don't begin until a couple of days later. Symptoms can include shakiness, sweating, insomnia, nausea , vomiting, fearfulness, hallucinations, and seizures. In addition to the acute effects of alcohol withdrawal, we often have to deal with the medical effects of alcoholism. These problems often include dehydration, stomach irritation, intestinal bleeding, low blood sugar, liver disease, and pancreas inflammation. Treatment for alcohol withdrawal includes mild sedatives, vitamins, and fluids. You need to be with someone who can help if symptoms become severe. Many patients can withdraw at home. Admission to the hospital or a detox facility may be necessary if withdrawal symptoms are severe and uncontrollable. Abstaining from alcohol is the only effective long-term treatment. If you start drinking again, you will not be able to control yourself after the first drink. Treatment programs are available. In addition, many alcoholics benefit from Alcoholics Anonymous or other support groups available through your counselor or [employer] professional. [facility] and [facility] are support groups for friends and family members of an alcoholic. Go to the emergency room if you develop persistent vomiting, severe abdominal pain, fever, shortness of breath, hallucinations, uncontrollable tremors, or seizures. COCAINE ABUSE: Cocaine causes many dangerous medical problems. Problems can occur even with "usual" amounts. Cocaine affects judgement, creating a sense of invulnerability. Cocaine users often make bad decisions that seem "great" at the time. Most cocaine users eventually will be hurt by bad job performance, damaged personal relations, crime, and unsafe sexual practices. Toxic effects of cocaine can include seizures, hallucinations, delusions, high blood pressure, heart damage, or sudden . There's always the risk of a "bad batch." But heart attacks, brain hemorrhages, or cardiac arrest can occur unpredictably even with "normal" use. Injection of cocaine is risky for abscesses, endocarditis (heart infection) , pneumonia, and AIDS. Withdrawal from cocaine often causes anxiety and drug cravings. Some users become paranoid and psychotic. Many treatment programs are available, but you must make the decision to quit. Medication can be prescribed to control the symptoms of cocaine toxicity (beta blockers or benzodiazepines). Withdrawal symptoms may require tranquilizers. DEPRESSION: Your evaluation reveals that you have mental depression. While symptoms may be vague, they often include disturbance of sleep, fatigue, loss of appetite , and general loss of interest in life. While depression may be a side effect of drugs, or a reaction to a major change in your life, many cases have no known cause. If depression is acute, and related to a major loss in your life, you can expect it to clear completely with time. If you have been depressed a long time , are prone to repeated bouts of depression or low mood, or have been thinking of suicide, get help. Depression can be treated with anti-depressant medication and counselling. Long-term depression will often take a few weeks to clear, even with appropriate medication. Follow-up care is important. SUICIDAL IDEATION: Suicidal ideation is a common medical term for thoughts about suicide, which may be as detailed as a formulated plan, without the suicidal act itself. Although most people who undergo suicidal ideation do not commit suicide, some go on to make suicide attempts. The range of suicidal ideation varies greatly from fleeting to detailed planning, role playing, and unsuccessful attempts. While thoughts about suicide are common, most people do not carry out serious actions to commit suicide. Based upon your evaluation and discussion with you, we do not believe you are currently at risk to act upon your thoughts of suicide. You have agreed to return to the Emergency Department, at any time , if you feel inclined to act upon your suicidal thoughts. FOLLOW-UP CARE: If you experience worsening or a significant change in your symptoms, notify the physician immediately or return to the Emergency Department at any time for re-evaluation. Referrals: [facility] [Provider Group] - Follow up tomorrow [facility] [Outside] - Follow up tomorrow
[2018-06-19 05:07] LABS: ABSOLUTE BASOPHILS # (AUTO) 0.1 10^3/uL (0.0-0.2); ABSOLUTE EOSINOPHILS # (AUTO) 0.1 10^3/uL (0.0-0.6); ABSOLUTE LYMPHOCYTES (AUTO) 3.3 10^3/uL (0.5-4.7); ABSOLUTE MONOCYTES (AUTO) 0.4 10^3/uL (0.1-1.4); ABSOLUTE NEUT (AUTO) 3.9 10^3/uL (1.7-8.2); BASOPHILS % (AUTO) 1.2 % (0-2); EOSINOPHILS % (AUTO) 0.9 % (0-6); HEMATOCRIT 37.7 % (36.0-47.0); HEMOGLOBIN 12.9 g/dL (12.0-15.5); LYMPHOCYTES % (AUTO) 42.5 % (13-45); MEAN CORPUSCULAR HEMOGLOBIN 32.3 pg (27.0-33.4); MEAN CORPUSCULAR HGB CONC 34.3 g/dL (32.0-36.0); MEAN CORPUSCULAR VOLUME 94 fl (80-97); MONOCYTES % (AUTO) 5.5 % (3-13); PLATELET COUNT 274 10^3/uL (150-450); RED CELL DISTRIBUTION WIDTH 13.5 % (11.5-14.0); SEGMENTED NEUTROPHILS % (AUTO) 49.9 % (42-78); TOTAL CELLS COUNTED % (AUTO) 100 %; WHITE BLOOD COUNT 7.8 10^3/uL (4.0-10.5)
[2018-06-19 05:24] LABS: ALANINE AMINOTRANSFERASE 25 U/L (9-52); ALBUMIN 4.2 g/dL (3.5-5.0); ALCOHOL 174 mg/dL (NONE DETECTED); ALKALINE PHOSPHATASE 72 U/L (38-126); ANION GAP 15 (5-19); ASPARTATE AMINO TRANSFERASE 32 U/L (14-36); BILIRUBIN,DIRECT 0.3 mg/dL (0.0-0.4); BILIRUBIN,TOTAL 0.3 mg/dL (0.2-1.3); BLOOD UREA NITROGEN 8 mg/dL (7-20); CALCIUM 9.1 mg/dL (8.4-10.2); CARBON DIOXIDE 24 mmol/L (22-30); CHLORIDE 111 mmol/L (98-107); GLUCOSE 101 mg/dL (75-110); POTASSIUM 3.8 mmol/L (3.6-5.0); SODIUM 149.5 mmol/L (137-145); TOTAL PROTEIN 7.3 g/dL (6.3-8.2)
[2018-06-19 05:26] LABS: ACETAMINOPHEN < 10 ug/mL (10-30); SALICYLATE < 1.0 mg/dL (2.0-20.0)
[2018-06-19 06:22] LABS: APPEARANCE,URINE CLEAR; BILIRUBIN,URINE NEGATIVE (NEGATIVE); COLOR,URINE COLORLESS; GLUCOSE, URINE NEGATIVE (NEGATIVE); KETONES,URINE NEGATIVE (NEGATIVE); LEUKOCYTE ESTERASE,URINE NEGATIVE (NEGATIVE); NITRITE,URINE NEGATIVE (NEGATIVE); PROTEIN,URINE NEGATIVE (NEGATIVE); URINE SPECIFIC GRAVITY 1.003; UROBILINOGEN,URINE NEGATIVE mg/dL (<2.0)
[2018-06-19 07:03] LABS: URINE AMPHETAMINES SCREEN NEGATIVE; URINE BARBITURATES SCREEN NEGATIVE; URINE BENZODIAZEPINES SCREEN NEGATIVE; URINE COCAINE SCREEN UNCONFIRMED POSITIVE; URINE MARIJUANA (THC) SCREEN NEGATIVE; URINE METHADONE SCREEN NEGATIVE; URINE PHENCYCLIDINE SCREEN NEGATIVE
--- NOTE | 2018-06-19 09:28 | EKG REPORT ---
SEVERITY:- OTHERWISE NORMAL ECG - SINUS RHYTHM BORDERLINE LEFT AXIS DEVIATION : Confirmed by: Bill Elizalde 19-Jun-2018 09:27:13
--- NOTE | 2018-06-19 10:51 | ER Document Report ---
Doctor's Note Notes: 06/19/18 10:47 Rounds: Chart reviewed. Patient being evaluated for an overdose of a few Trileptal tablets plus Benadryl. Patient sleeping soundly, but nursing staff assures me she has been awake and talking with them. I called her name 3 times and she continued to sleep. Labs all essentially normal except her sodium and chloride were slightly elevated and she is positive for cocaine on her drug screen and alcohol level of 174. Vital signs are all normal. Patient appears to be medically stable for transfer or discharge. Kaden Salcido MD
--- NOTE | 2018-06-19 13:09 | PSYCHOLOGICAL NOTE ---
Psych Note - Psych Note Date seen by psych provider: 06/19/18 Time seen by psych provider: 07:32 Psych Note: Reason for Consult: suicidal ideation Patient reports that she overdosed on her Trileptal and Benadryl. She refuses to fully engage with clinician laying with her back to clinician eyes closed attempting to sleep. She reports that she has been unable to get a hold of any of her mental health providers stating that she is called them multiple times. She confirms she is never attempted to walk into the mental health facility to make an appointment. She confirms that she does not take her medications as prescribed. When asked when the last time she used cocaine she reports "I do not know." She states she is living with some people in [facility] but is unsure if she can return. She asked clinician to charge her black phone ("not the red one the black one") so she can call for a ride. She disclosed frustration with clinician about needed to follow recommendations of mental health and substance abuse and continued to have difficulties with understanding her choices have resulted in her chronic homelessness. Patient is alert and orientated to person,place, time and circumstance. Clinician notes the patient's mood is irritability with congruent affect. Patient reports intentional overdose of 5 pills of Trileptal; it is noted the patient had 115 pills in her possession. It is also noted the patient lately changed her story and reported overdosing on Benadryl however did not have any Benadryl in her possession. Patient did have a bottle of antibiotics. Patient reports suicidal ideation in direct relationship to being homeless. She denies homicidal ideation. Delusions are absent and behaviour is congruent with and intact reality based presentation ie organized and linear thought processes. Thought content appears to be focused on secondary gain. Eye contact was well maintained. Conversational speech was within normal rate tone and prosody. attention and concentration are fair. intellectual abilities appear to be low average range. Insight, judgment and impulse control are fair. Chart review conducted Patient disclosed to attending physician she drank alcohol this evening, took 5 300 mg Trileptal pills and then took "a couple of Benadryls" in an attempt at suicide. Patient disclosed to attending nurse upon arrivePt arrived to ED via EMS after ingesting 5 tablets of Oxcarbazepine. Pt admits to taking the pills intentionally to harm herself. Pt reports multiple suicidal attempts in the past to include cutting and ingesting Benadryl. Pt c/o abdominal pain and nausea. EMS stated she was in the car with someone who put her out their car and [employer] called EMS. Patient is noted to have come into [facility] ED with her medication of Trileptal bottle. It appears the patient has combined her medication from to prescriptions has the bottle has 115 pills and the pill count indicates 90 was provided. It is also noted the toxicology and laboratory screenings do not support an overdose. Patient is positive for cocaine and had an ETOH 174. 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 Patient does not meet IVC criteria per [place] GS 122C. Patient reports suicidal gesture overdosing on 5 pills of her Triliptal. It is noted the patient had 115 Trileptal pills in her possession and patient changed her reports of what she overdosed on from Triliptal to Triliptal and Benadryl. This patient is well- known to this clinician and department. Patient has a higher level of care with her ACT team through [facility]. Patient's outpatient mental health provider is [facility]. Patient has been chronically homeless for over 4 months and it was very cold last night. Toxicology and laboratory screenings do not support an overdose; however, she was positive for cocaine and had an ETOH of 174. Inpatient psychiatric treatment would not be appropriate for this patient, she is noncompliant on medications and will not engage in substance abuse treatment. The patient is need of therapeutic intervention to teach coping skills through an outpatient mental health setting. Patient presents with social issues and substance abuse (Cocaine). Referral for [facility] has been submitted. Dr. Cleveland was consulted on the care and management of this patient; attending physician is in agreement with recommendations and disposition.
[2018-06-19] MEDS ORDERED: ONDANSETRON HCL INJ/PF 4 MG/2 ML SDV IV ONE (13:57)
[2018-06-19 14:05] VITALS: BP 105/70
== END 2018-06-19 14:29 | disposition home or self-care (01) ==
LOC: ER 04:02
DX: F32.9 Major depressive disorder, single episode, unspecified (principal); Z59.0 Homelessness; F14.10 Cocaine abuse, uncomplicated; F10.10 Alcohol abuse, uncomplicated; F17.200 Nicotine dependence, unspecified, uncomplicated; M79.7 Fibromyalgia; Z91.040 Latex allergy status; Z88.3 Allergy status to other anti-infective agents; Z88.6 Allergy status to analgesic agent
CPT/HCPCS: 36415; 80053; 80307; 81001; 84703; 85025; 93005; 93010; 99285

== ENCOUNTER 2018-06-21 15:09 | Emergency (ER) | payer SELFPAY ==
[2018-06-21] MEDS ORDERED: ACETAMINOPHEN 325 MG TABLET PO ONE (15:45)
[2018-06-21] MEDS ORDERED: LIDOCAINE 5% (700 MG) TRANSDERMAL ADH..PATCH TP ONE (15:46)
[2018-06-21 16:21] LABS: APPEARANCE,URINE SLIGHTLY-CLOUDY; BILIRUBIN,URINE NEGATIVE (NEGATIVE); COLOR,URINE YELLOW; GLUCOSE, URINE NEGATIVE (NEGATIVE); KETONES,URINE NEGATIVE (NEGATIVE); LEUKOCYTE ESTERASE,URINE TRACE (NEGATIVE); NITRITE,URINE NEGATIVE (NEGATIVE); PROTEIN,URINE NEGATIVE (NEGATIVE); URINE SPECIFIC GRAVITY 1.025; UROBILINOGEN,URINE NEGATIVE mg/dL (<2.0)
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
[2018-06-21 17:08] VITALS: BP 132/80
== END 2018-06-21 17:05 | disposition home or self-care (01) ==
LOC: ER 15:09
DX: S20.229A Contusion of unspecified back wall of thorax, initial encounter (principal); M54.6 Pain in thoracic spine; M54.5 Low back pain; Y04.2XXA Assault by strike against or bumped into by another person, initial encounter; F17.200 Nicotine dependence, unspecified, uncomplicated; J45.909 Unspecified asthma, uncomplicated
CPT/HCPCS: 72070; 81001; 87086; 99284

== ENCOUNTER 2018-07-25 08:43 | Emergency (ER) | payer SELFPAY ==
--- NOTE | 2018-07-25 09:26 | ER Document Report ---
HPI - HPI Patient complains to provider of: Right foot pain, vaginal discharge Time Seen by Provider: 07/25/18 09:17 Onset/Duration: Persistent Quality of pain: Achy Pain Level: 2 Context: Patient states she twisted her foot 2 weeks ago when she has had persistent pain since then. Patient complains of right foot tenderness. Patient also reports vaginal discharge for the past week. Patient denies any concerns about sexually transmitted infection but is concerned she has BV. Patient denies any urinary symptoms. Associated Symptoms: Other - Vaginal discharge, right foot pain. denies: Fever, Vomiting Exacerbated by: Walking Relieved by: Denies Similar symptoms previously: Yes - bv Recently seen / treated by doctor: No - ROS ROS below otherwise negative: Yes Systems Reviewed and Negative: Yes All other systems reviewed and negative - CONSTITUTIONAL Constitutional: DENIES: Fever, Chills - EENT EENT: DENIES: Sore Throat, Congestion - NEURO Neurology: DENIES: Headache - RESPIRATORY Respiratory: DENIES: Coughing - GASTROINTESTINAL Gastrointestinal: DENIES: Abdominal Pain, Patient vomiting - URINARY Urinary: DENIES: Dysuria, Urgency, Frequency - REPRODUCTIVE Reproductive: REPORTS: Abnormal bleeding / discharge. DENIES: : - MUSCULOSKELETAL Musculoskeletal: REPORTS: Extremity pain - Right foot - DERM Skin Color: Normal Skin Problems: None Past Medical History - General Information source: Patient - Social History Smoking Status: Never Smoker Frequency of alcohol use: None Drug Abuse: None Occupation: None Family History: Reviewed & Not Pertinent Pulmonary Medical History: Reports: Hx Asthma, Hx Pneumonia - WALKING PNEUMONIA YEARS AGO Neurological Medical History: Reports: Hx Seizures Renal/ Medical History: Reports: Hx Ectopic . Denies: Hx Peritoneal Dialysis GI Medical History: Reports: Hx Irritable Bowel Musculoskeletal Medical History: Reports Hx Arthritis - POLY RA, FIBROMYALGIA, Reports Hx Fibromyalgia Psychiatric Medical History: Reports: Hx Bipolar Disorder, Hx Depression Past Surgical History: Reports: Hx Oral Surgery - wisdom - Immunizations Immunizations up to date: Yes Hx Diphtheria, Pertussis, Tetanus Vaccination: Yes Vertical Provider Document - CONSTITUTIONAL Agree With Documented VS: Yes Exam Limitations: No Limitations General Appearance: WD/WN, No Apparent Distress - INFECTION CONTROL TRAVEL OUTSIDE OF THE [place] IN LAST 30 DAYS: No - HEENT HEENT: Atraumatic, Normocephalic - NECK Neck: Normal Inspection - RESPIRATORY Respiratory: Breath Sounds Normal, No Respiratory Distress - CARDIOVASCULAR Cardiovascular: Regular Rate, Regular Rhythm Pulses: Normal: Dorsalis pedis - GI/ABDOMEN Gastrointestinal: Abdomen Soft - REPRODUCTIVE Female Genitalia: negative: CMT, Adnexal Pain-Right, Adnexal Pain-Left Notes: +cream vaginal discharge, Lindsay PCT as standby - BACK Back: Normal Inspection. negative: CVA Tenderness-Right, CVA Tenderness-Left - MUSCULOSKELETAL/EXTREMETIES Musculoskeletal/Extremeties: MAEW, Tender - Right lateral midfoot tenderness, no edema, no deformity, no ecchymosis, No Edema. negative: Eccymosis - NEURO Level of Consciousness: Awake, Alert, Appropriate Motor/Sensory: No Motor Deficit - DERM Integumentary: Warm, Dry, No Rash Course - Re-evaluation Re-evalutation: 07/25/18 Patient without any acute fracture noted on x-ray. Patient does have a history of a wrist fracture and still is wearing a splint to the left upper extremity. Patient has been ambulating in the emergency department without any guarding. Will immobilize foot and recommend use of cane to assist with ambulation. - Vital Signs Vital signs: Temp Pulse Resp BP Pulse Ox 97.4 F 79 16 108/69 98 07/25/18 08:45 07/25/18 08:45 07/25/18 08:45 07/25/18 08:45 07/25/18 08:45 - Laboratory Laboratory results interpreted by me: 07/25/18 11:11 Labs- Entire Visit 07/25/18 10:20 Trichomonas (Wet Prep) NO TRICHOMONAS SEEN Vaginal WBC FEW WBCS SEEN Vaginal RBC 2+ RBCS SEEN Vaginal Yeast NO YEAST SEEN - Diagnostic Test Radiology reviewed: Reports reviewed Procedures - Immobilization Right Foot Pre-Proc Neuro Vasc Exam: Normal Immobilizer type: Dionte wrap, Post-op shoe Performed by: PCT Post-Proc Neuro Vasc Exam: Normal Alignment checked and good: Yes Discharge - Discharge Clinical Impression: Bacterial vaginosis Right foot sprain Qualifiers: Encounter type: initial encounter Qualified Code(s): S93.601A - Unspecified sprain of right foot, initial encounter Condition: Stable Disposition: HOME, SELF-CARE Instructions: Acetaminophen, Ice Packs ([facility]), Metronidazole ([facility]), Sprain ([facility]), Vaginosis, Bacterial ([facility]) Additional Instructions: Return immediately for any new or worsening symptoms Followup with your primary care provider, call tomorrow to make a followup appointment Follow-up with orthopedics for any persistent pain or problems Prescriptions: Metronidazole [Flagyl 500 mg Tablet] 500 mg PO BID #14 tablet Referrals: [facility] [Primary Care Provider] - Follow up as needed [facility] [Provider Group] - Follow up as needed
--- NOTE | 2018-07-25 09:55 | RADIOLOGY REPORT (SQ) ---
EXAM DESCRIPTION: FOOT RIGHT COMPLETE COMPLETED DATE/TIME: 07/25/2018 9:44 am REASON FOR STUDY: stepped in hole COMPARISON: None. NUMBER OF VIEWS: Three views. TECHNIQUE: AP, lateral and oblique radiographic images acquired of the right foot. LIMITATIONS: None. FINDINGS: MINERALIZATION: Normal. BONES: No acute fracture or dislocation. No worrisome bone lesions. JOINTS: No effusions. SOFT TISSUES: No soft tissue swelling. No foreign body. OTHER: No other significant finding. IMPRESSION: NEGATIVE STUDY OF THE RIGHT FOOT. NO RADIOGRAPHIC EVIDENCE OF ACUTE INJURY. TECHNICAL DOCUMENTATION: JOB ID: [id number] [employer]- All Rights Reserved Reading location - IP/workstation name: [email or web address]
[2018-07-25 10:48] LABS: RBCS (WET MOUNT) 2+ RBCS SEEN; T.VAGINALIS (WET MOUNT) NO TRICHOMONAS SEEN; WBCS (WET MOUNT) FEW WBCS SEEN; YEAST (WET MOUNT) NO YEAST SEEN
[2018-07-25] MEDS ORDERED: METRONIDAZOLE 500 MG TABLET PO ONE (11:10)
[2018-07-25] MEDS ORDERED: ACETAMINOPHEN 325 MG TABLET PO ONE (11:10)
[2018-07-25 11:37] VITALS: BP 109/77
[2018-07-25 12:19] LABS: CHLAM PCR NOT DETECTED (NOT DETECT); GON PCR NOT DETECTED (NOT DETECT)
== END 2018-07-25 11:41 | disposition home or self-care (01) ==
LOC: ER 08:43
DX: S93.601A Unspecified sprain of right foot, initial encounter (principal); M79.671 Pain in right foot; X50.1XXA Overexertion from prolonged static or awkward postures, initial encounter; N76.0 Acute vaginitis; B96.89 Other specified bacterial agents as the cause of diseases classified elsewhere; J45.909 Unspecified asthma, uncomplicated
CPT/HCPCS: 87210; 87491; 87591; 99284

== ENCOUNTER → 2018-08-18 | Outpatient (CLI) | payer OTHER ==
--- NOTE | 2018-08-18 15:35 | RADIOLOGY REPORT (SQ) ---
EXAM DESCRIPTION: WRIST LEFT 2 VIEWS COMPLETED DATE/TIME: 08/18/2018 3:05 pm REASON FOR STUDY: PAIN IN LEFT WRIST X 6 WEEKS M25.532 PAIN IN LEFT WRIST COMPARISON: 05/06/2018. NUMBER OF VIEWS: Two views. TECHNIQUE: AP and lateral radiographic images acquired of the left wrist. LIMITATIONS: None. FINDINGS: MINERALIZATION: Normal. BONES: Old fracture of the distal ulna with callus. No acute fracture or dislocation. No worrisome b one lesions. Normal alignment. No significant osteophytes. JOINTS: No erosions. No anastacio-articular osteopenia. No chondrocalcinosis. SOFT TISSUES: No swelling. No calcifications. OTHER: No other significant finding. IMPRESSION: OLD FRACTURE OF THE DISTAL ULNA. NO OTHER SIGNIFICANT FINDINGS. TECHNICAL DOCUMENTATION: JOB ID: [id number] [employer]- All Rights Reserved Reading location - IP/workstation name: [email or web address]
== END ==
LOC: OD 14:39
DX: M25.532 Pain in left wrist (principal); Z87.81 Personal history of (healed) traumatic fracture

== ENCOUNTER 2018-10-09 08:11 | Emergency (ER) | payer SELFPAY ==
[2018-10-09 09:21] LABS: APPEARANCE,URINE SLIGHTLY-CLOUDY; BILIRUBIN,URINE NEGATIVE (NEGATIVE); COLOR,URINE YELLOW; GLUCOSE, URINE NEGATIVE (NEGATIVE); KETONES,URINE NEGATIVE (NEGATIVE); LEUKOCYTE ESTERASE,URINE NEGATIVE (NEGATIVE); NITRITE,URINE NEGATIVE (NEGATIVE); PROTEIN,URINE NEGATIVE (NEGATIVE); URINE SPECIFIC GRAVITY 1.013; UROBILINOGEN,URINE NEGATIVE mg/dL (<2.0)
[2018-10-09] MEDS ORDERED: AMOXICILLIN TRIHYDRATE 500 MG CAPSULE PO ONE (09:49)
--- NOTE | 2018-10-09 09:51 | ER Document Report ---
HPI - HPI Patient complains to provider of: Toothache, urinary frequency Time Seen by Provider: 10/09/18 08:19 Onset/Duration: Persistent Quality of pain: Achy Pain Level: 4 Context: Patient presents complaining of dental pain for the past week. Patient complains of urinary frequency for the past 3 days. Patient denies any dysuria. Patient states that she never wakes up in time on Mondays in order to call the [facility]. Associated Symptoms: Other - Dental pain, urinary frequency. denies: Fever, Headache, Vomiting Exacerbated by: Denies Relieved by: Denies Similar symptoms previously: Yes Recently seen / treated by doctor: No - ROS ROS below otherwise negative: Yes Systems Reviewed and Negative: Yes All other systems reviewed and negative - CONSTITUTIONAL Constitutional: DENIES: Fever - EENT EENT: DENIES: Sore Throat, Congestion Notes: Dental pain - GASTROINTESTINAL Gastrointestinal: DENIES: Abdominal Pain, Nausea, Patient vomiting - URINARY Urinary: REPORTS: Frequency. DENIES: Dysuria, Urgency - REPRODUCTIVE Reproductive: DENIES: : - MUSCULOSKELETAL Musculoskeletal: DENIES: Extremity pain, Back Pain - DERM Skin Color: Normal Past Medical History - General Information source: Patient - Social History Smoking Status: Never Smoker Frequency of alcohol use: None Drug Abuse: None Occupation: None Family History: Reviewed & Not Pertinent Patient has suicidal ideation: No Patient has homicidal ideation: No Pulmonary Medical History: Reports: Hx Asthma, Hx Pneumonia - WALKING PNEUMONIA YEARS AGO Denies: Hx Bronchitis, Hx COPD Neurological Medical History: Reports: Hx Seizures Renal/ Medical History: Reports: Hx Ectopic . Denies: Hx Peritoneal Dialysis GI Medical History: Reports: Hx Irritable Bowel Musculoskeletal Medical History: Reports Hx Arthritis - POLY RA, FIBROMYALGIA, Reports Hx Fibromyalgia Psychiatric Medical History: Reports: Hx Bipolar Disorder, Hx Depression Past Surgical History: Reports: Hx Oral Surgery - wisdom - Immunizations Immunizations up to date: Yes Hx Diphtheria, Pertussis, Tetanus Vaccination: Yes Vertical Provider Document - CONSTITUTIONAL Agree With Documented VS: Yes Exam Limitations: No Limitations General Appearance: WD/WN, No Apparent Distress - INFECTION CONTROL TRAVEL OUTSIDE OF THE [place] IN LAST 30 DAYS: No - HEENT HEENT: Atraumatic, Normocephalic Mouth Diagram: 1 - Tenderness, dental decay Notes: Patient with widespread dental decay involving all of her teeth, no gingival abscess, no sublingual or submental swelling - NECK Neck: Normal Inspection, Supple - RESPIRATORY Respiratory: Breath Sounds Normal, No Respiratory Distress - CARDIOVASCULAR Cardiovascular: Regular Rate, Regular Rhythm, No Murmur - GI/ABDOMEN Gastrointestinal: Abdomen Soft - BACK Back: Normal Inspection. negative: CVA Tenderness-Right, CVA Tenderness-Left - MUSCULOSKELETAL/EXTREMETIES Musculoskeletal/Extremeties: MAPAULA, FROM - NEURO Level of Consciousness: Awake, Alert, Appropriate Motor/Sensory: No Motor Deficit - DERM Integumentary: Warm, Dry, No Rash Course - Re-evaluation Re-evalutation: 10/09/18 Patient nontoxic in appearance. Patient without any findings worrisome for acute UTI. Patient encouraged to follow-up with a dental care provider. No concern for Damian's angina or dental abscess at this time. 10/09/18 19:22 - Vital Signs Vital signs: Temp Pulse Resp BP Pulse Ox 98.1 F 78 16 110/77 100 10/09/18 08:16 10/09/18 08:16 10/09/18 08:16 10/09/18 08:16 10/09/18 08:16 - Laboratory Laboratory results interpreted by me: 10/09/18 08:45 Urine Blood SMALL H Discharge - Discharge Clinical Impression: Toothache, Urinary frequency Condition: Stable Disposition: HOME, SELF-CARE Instructions: Acetaminophen, Amoxicillin ([facility]), [facility], Toothache ([facility]) Additional Instructions: Return immediately for any new or worsening symptoms Followup with your primary care provider, call tomorrow to make a followup appointment Follow-up with the [facility] for further evaluation of your dental pain Prescriptions: Amoxicillin 500 mg PO TID #30 tablet Phenazopyridine HCl [Pyridium 200 mg Tablet] 200 mg PO TID #15 tablet Referrals: [facility] [Provider Group] - Follow up as needed [facility] [Provider Group] - Follow up as needed
[2018-10-09 09:58] VITALS: BP 121/78
== END 2018-10-09 10:01 | disposition home or self-care (01) ==
LOC: ER 08:11
DX: K08.89 Other specified disorders of teeth and supporting structures (principal); R35.0 Frequency of micturition; J45.909 Unspecified asthma, uncomplicated
CPT/HCPCS: 81001; 81025; 99283

== ENCOUNTER 2018-11-07 01:24 | Emergency (ER) | payer SELFPAY ==
[2018-11-07 01:33] VITALS: BP 112/70
[2018-11-07] MEDS ORDERED: ACETAMINOPHEN 325 MG TABLET PO ONE (02:43)
[2018-11-07] MEDS ORDERED: TRAMADOL HCL 50 MG TABLET PO ONE (02:44)
[2018-11-07] MEDS ORDERED: BACITRACIN ZINC OINTMENT 15 GM TP ONE (02:45)
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
[2018-11-07 05:03] LABS: URINE AMPHETAMINES SCREEN NEGATIVE; URINE BARBITURATES SCREEN NEGATIVE; URINE BENZODIAZEPINES SCREEN NEGATIVE; URINE COCAINE SCREEN UNCONFIRMED POSITIVE; URINE MARIJUANA (THC) SCREEN NEGATIVE; URINE METHADONE SCREEN NEGATIVE; URINE PHENCYCLIDINE SCREEN NEGATIVE
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
[2018-11-07] MEDS ORDERED: IBUPROFEN 600 MG TABLET ONE (08:49)
== END 2018-11-07 14:04 | disposition home or self-care (01) ==
LOC: ER 01:24
DX: S06.0X0A Concussion without loss of consciousness, initial encounter (principal); T23.001A Burn of unspecified degree of right hand, unspecified site, initial encounter; R51 Headache; R22.0 Localized swelling, mass and lump, head; Y04.0XXA Assault by unarmed brawl or fight, initial encounter; H53.8 Other visual disturbances; J45.909 Unspecified asthma, uncomplicated
CPT/HCPCS: 70450; 70486; 80307; 81025; 99284; J3490

== ENCOUNTER 2018-11-15 21:36 | Emergency (ER) | payer SELFPAY | END 2018-11-15 22:30 | disposition left against medical advice (07) | LOC: ER 21:36 | DX: Z53.21 Procedure and treatment not carried out due to patient leaving prior to being seen by health care provider (principal) ==

== ENCOUNTER 2018-11-16 12:52 | Emergency (ER) | payer SELFPAY ==
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
[2018-11-16 13:31] VITALS: BP 124/80
[2018-11-16] MEDS ORDERED: ONDANSETRON 4 MG TAB.RAPDIS PO ONE (13:38)
[2018-11-16 14:09] LABS: BACTERIA (WET MOUNT) 4+ BACTERIA SEEN; RBCS (WET MOUNT) RARE RBCS SEEN; T.VAGINALIS (WET MOUNT) NO TRICHOMONAS SEEN; WBCS (WET MOUNT) 4+ WBCS SEEN; YEAST (WET MOUNT) NO YEAST SEEN
[2018-11-16 14:10] LABS: EPITHELIALS (WET MOUNT) 3+ EPITHELIALS SEEN
[2018-11-16 14:24] LABS: APPEARANCE,URINE CLEAR; BILIRUBIN,URINE NEGATIVE (NEGATIVE); COLOR,URINE YELLOW; GLUCOSE, URINE NEGATIVE (NEGATIVE); KETONES,URINE NEGATIVE (NEGATIVE); LEUKOCYTE ESTERASE,URINE MODERATE (NEGATIVE); NITRITE,URINE NEGATIVE (NEGATIVE); PROTEIN,URINE NEGATIVE (NEGATIVE); URINE SPECIFIC GRAVITY 1.009; UROBILINOGEN,URINE NEGATIVE mg/dL (<2.0)
[2018-11-16 14:25] LABS: ABSOLUTE LYMPHOCYTES (AUTO) 1.7 10^3/uL (0.5-4.7); ABSOLUTE MONOCYTES (AUTO) 0.3 10^3/uL (0.1-1.4); ABSOLUTE NEUT (AUTO) 5.3 10^3/uL (1.7-8.2); BASOPHILS % (AUTO) 0.5 % (0-2); EOSINOPHILS % (AUTO) 0.3 % (0-6); HEMATOCRIT 39.4 % (36.0-47.0); HEMOGLOBIN 13.4 g/dL (12.0-15.5); LYMPHOCYTES % (AUTO) 22.7 % (13-45); MEAN CORPUSCULAR HGB CONC 33.9 g/dL (32.0-36.0); MEAN CORPUSCULAR VOLUME 92 fl (80-97); MONOCYTES % (AUTO) 4.4 % (3-13); PLATELET COUNT 291 10^3/uL (150-450); RED CELL DISTRIBUTION WIDTH 12.6 % (11.5-14.0); SEGMENTED NEUTROPHILS % (AUTO) 72.1 % (42-78); TOTAL CELLS COUNTED % (AUTO) 100 %; WHITE BLOOD COUNT 7.3 10^3/uL (4.0-10.5)
[2018-11-16 14:41] LABS: ALANINE AMINOTRANSFERASE 23 U/L (9-52); ALBUMIN 4.5 g/dL (3.5-5.0); ALKALINE PHOSPHATASE 87 U/L (38-126); ANION GAP 13 (5-19); ASPARTATE AMINO TRANSFERASE 21 U/L (14-36); BILIRUBIN,DIRECT 0.3 mg/dL (0.0-0.4); BILIRUBIN,TOTAL 0.5 mg/dL (0.2-1.3); BLOOD UREA NITROGEN 10 mg/dL (7-20); CALCIUM 9.9 mg/dL (8.4-10.2); CARBON DIOXIDE 23 mmol/L (22-30); CHLORIDE 106 mmol/L (98-107); GLUCOSE 116 mg/dL (75-110); POTASSIUM 3.9 mmol/L (3.6-5.0); SODIUM 141.8 mmol/L (137-145); TOTAL PROTEIN 7.6 g/dL (6.3-8.2)
[2018-11-16 15:35] LABS: CHLAM PCR NOT DETECTED (NOT DETECT); GON PCR NOT DETECTED (NOT DETECT)
[2018-11-16] MEDS ORDERED: METRONIDAZOLE 500 MG TABLET PO ONE (17:42)
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
--- NOTE | 2018-11-16 19:18 | RADIOLOGY REPORT (SQ) ---
EXAM DESCRIPTION: U/S NON OB PEL TV W/DOPPLER COMPLETED DATE/TIME: 11/16/2018 6:33 pm REASON FOR STUDY: Pelvic pain COMPARISON: None. TECHNIQUE: Dynamic and static grayscale images acquired of the pelvis via transvaginal approach and recorded on PACS. Additional selected color Doppler and spectral images recorded. LIMITATIONS: None. FINDINGS: UTERUS: Normal contour. Other than what is detailed in the cervix, no solid or cystic mas s. ENDOMETRIAL STRIPE: No focal or generalized thickening. No masses. CERVIX: Within the cervix is a hypoechoic circumscribed, avascular lesion with internal echoes measur ing 1.9 x 1.2 x 2.3 cm, likely representing a large nabothian cyst. RIGHT OVARY AND DOPPLER: Not visualized. LEFT OVARY AND DOPPLER: Not visualized. FREE FLUID: None noted. OTHER: No other significant finding. MEASUREMENTS: UTERUS: 6.0 x 2.7 x 2.0 cm. ENDOMETRIAL STRIPE: 3 mm RIGHT OVARY: Not visualized. LEFT OVARY: Not visualized. IMPRESSION: Nonvisualization of the ovaries. Otherwise, normal pelvic ultrasound. TECHNICAL DOCUMENTATION: JOB ID: [id number] [employer]- All Rights Reserved Rev Reading location - IP/workstation name: [email or web address]
[2018-11-16] MEDS ORDERED: CEFTRIAXONE INJ 250 MG VIAL IM ONE (19:44)
[2018-11-16] MEDS ORDERED: DOXYCYCLINE HYCLATE 100 MG TABLET PO ONE (19:44)
[2018-11-16] MEDS ORDERED: LIDOCAINE 1% INJ (10 MG/ML) 10 ML MDV INJ ONE (19:45)
[2018-11-16] MEDS ORDERED: NITROFURANTOIN MONOHYD/M-CRYST 100 MG CAPSULE PO ONE (19:45)
[2018-11-16] MEDS ORDERED: FLUCONAZOLE 100 MG TABLET PO ONE (20:16)
== END 2018-11-16 20:20 | disposition home or self-care (01) ==
LOC: ER 12:52
DX: N73.0 Acute parametritis and pelvic cellulitis (principal); N30.01 Acute cystitis with hematuria; K62.89 Other specified diseases of anus and rectum; R30.9 Painful micturition, unspecified; R35.0 Frequency of micturition; R39.15 Urgency of urination; R11.2 Nausea with vomiting, unspecified; R10.30 Lower abdominal pain, unspecified; N89.8 Other specified noninflammatory disorders of vagina; J45.909 Unspecified asthma, uncomplicated
CPT/HCPCS: 99284; 96372; 36415; 87086; 87210; 84703; 85025; 87088; 80053; 81001; 87491; 87591; 76830; 93976; S0119; J0696; J8499

== ENCOUNTER 2018-11-21 01:20 | Emergency (ER) | payer SELFPAY ==
[2018-11-21] MEDS ORDERED: LIDOCAINE 2% INJ-PF (20 MG/ML) 10 ML AMPUL NEB ONE (01:40)
[2018-11-21] MEDS ORDERED: LORAZEPAM INJ 2 MG/1 ML VIAL IV ONE (01:41)
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
--- NOTE | 2018-11-21 02:01 | RADIOLOGY REPORT (SQ) ---
EXAM DESCRIPTION: XR CHEST 1 VIEW COMPLETED DATE/TME: 11/21/2018 01:36 CLINICAL HISTORY: 38 years Female, Caustic ingestion COMPARISON: None. NUMBER OF VIEWS/TECHNIQUE: 1/AP FINDINGS: Adequate lung volume, clear parenchyma, normal cardiac silhouette, and intact bony thorax. IMPRESSION: No acute cardiopulmonary findings.
[2018-11-21 02:55] VITALS: BP 121/80
--- NOTE | 2018-11-21 22:34 | EKG REPORT ---
SEVERITY:- ABNORMAL ECG - SINUS RHYTHM ABERRANT COMPLEX, POSSIBLY SUPRAVENTRICULAR PROBABLE LEFT VENTRICULAR HYPERTROPHY : Confirmed by: Sylvia Lisa MD 21-Nov-2018 22:33:26
== END 2018-11-21 02:55 | disposition home or self-care (01) ==
LOC: ER 01:20
DX: T65.891A Toxic effect of other specified substances, accidental (unintentional), initial encounter (principal); J68.9 Unspecified respiratory condition due to chemicals, gases, fumes and vapors; R05 Cough; R07.89 Other chest pain; R06.02 Shortness of breath; Y92.009 Unspecified place in unspecified non-institutional (private) residence as the place of occurrence of the external cause; F17.200 Nicotine dependence, unspecified, uncomplicated; Z88.6 Allergy status to analgesic agent; Z88.3 Allergy status to other anti-infective agents; Z91.040 Latex allergy status
CPT/HCPCS: 93005; 94640; 71045; 99284; 96374; 93010; J2060; J3490

== ENCOUNTER 2019-01-28 06:14 | Emergency (ER) | payer SELFPAY ==
--- NOTE | 2019-01-28 07:17 | RADIOLOGY REPORT (SQ) ---
EXAM DESCRIPTION: XR RIBS UNILATERAL WITH CHEST COMPLETED DATE/TME: 01/28/2019 00:00 CLINICAL HISTORY: 38 years Female, BONE TENDERNESS COMPARISON: 11/21/18 NUMBER OF VIEWS/TECHNIQUE: 3 FINDINGS: No displaced rib fracture. No pneumothorax. No acute cardiopulmonary findings. IMPRESSION: No acute findings.
--- NOTE | 2019-01-28 07:23 | RADIOLOGY REPORT (SQ) ---
EXAM DESCRIPTION: XR WRIST 3 OR MORE VIEWS BILATERAL COMPLETED DATE/TME: 01/28/2019 06:15 CLINICAL HISTORY: 38 years Female, BONE TENDERNESS COMPARISON:Aug 18 2018 Findings: Comminuted fracture of the distal diaphysis of the right fifth metacarpus with mild volar angulation. Bones, joints, and soft tissues of the LEFT XR WRIST 3 OR MORE VIEWS BILATERAL appear otherwise unremarkable. IMPRESSION: Acute fracture of the distal right fifth metacarpal shaft.
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
[2019-01-28] MEDS ORDERED: OXYCODONE-ACETAMINOPHEN 5-325 MG TABLET PO ONE (07:50)
[2019-01-28 08:14] LABS: ABSOLUTE BASOPHILS # (AUTO) 0.1 10^3/uL (0.0-0.2); ABSOLUTE EOSINOPHILS # (AUTO) 0.1 10^3/uL (0.0-0.6); ABSOLUTE LYMPHOCYTES (AUTO) 2.7 10^3/uL (0.5-4.7); ABSOLUTE MONOCYTES (AUTO) 0.7 10^3/uL (0.1-1.4); ABSOLUTE NEUT (AUTO) 13.2 10^3/uL (1.7-8.2); BASOPHILS % (AUTO) 0.5 % (0-2); EOSINOPHILS % (AUTO) 0.9 % (0-6); HEMATOCRIT 42.6 % (36.0-47.0); HEMOGLOBIN 14.1 g/dL (12.0-15.5); LYMPHOCYTES % (AUTO) 16.1 % (13-45); MEAN CORPUSCULAR HEMOGLOBIN 31.2 pg (27.0-33.4); MEAN CORPUSCULAR HGB CONC 33.2 g/dL (32.0-36.0); MEAN CORPUSCULAR VOLUME 94 fl (80-97); PLATELET COUNT 350 10^3/uL (150-450); RED BLOOD COUNT 4.53 10^6/uL (3.72-5.28); RED CELL DISTRIBUTION WIDTH 13.4 % (11.5-14.0); SEGMENTED NEUTROPHILS % (AUTO) 78.5 % (42-78); TOTAL CELLS COUNTED % (AUTO) 100 %; WHITE BLOOD COUNT 16.8 10^3/uL (4.0-10.5)
--- NOTE | 2019-01-28 08:41 | RADIOLOGY REPORT (SQ) ---
EXAM DESCRIPTION: CT FACIAL AREA WITHOUT COMPLETED DATE/TIME: 01/28/2019 8:23 am REASON FOR STUDY: facial trauma COMPARISON: 11/07/2018 TECHNIQUE: Noncontrasted images through the facial bones and orbits windowed for bone and soft tissu e. Additional coronal and sagittal reconstructed images reviewed. All images stored on PACS. All CT scanners at this facility use dose modulation, iterative reconstruction, and/or weight based d osing when appropriate to reduce radiation dose to as low as reasonably achievable (ALARA). [facility]: Dose Right [facility]: CareDose [facility]: Dose Right [facility]: Teradose 4D [facility]: [employer] RADIATION DOSE: CT Rad equipment meets quality standard of care and radiation dose reduction techniq ues were employed. CTDIvol: 13.2 mGy. DLP: 246 mGy-cm. mGy. LIMITATIONS: None. FINDINGS: FACIAL BONES: No fracture or bone lesion. ORBITS: Intact. No fracture. Symmetric intact globes and retroorbital soft tissues. PARANASAL SINUSES: Clear. No significant mucosal thickening, mass or fluid. No nasal polyps. Maxill veronica sinus outlets are patent. Rightward deviation of the nasal septum. SOFT TISSUES: Soft tissue swelling over the right cheek and orbit. INFERIOR BRAIN: Limited view. No acute findings. OTHER: No other significant finding. IMPRESSION: No fracture or dislocation of the facial bones. Soft tissue swelling over the right aide ek and orbit. TECHNICAL DOCUMENTATION: JOB ID: [id number] Quality ID # [id number]: Final reports with documentation of one or more dose reduction techniques (e.g., Au tomated exposure control, adjustment of the mA and/or kV according to patient size, use of iterative reconstruction technique) 2010 [email or web address]- All Rights Reserved Reading location - IP/workstation name: [email or web address]
[2019-01-28 08:42] LABS: ALANINE AMINOTRANSFERASE 14 U/L (9-52); ALBUMIN 4.4 g/dL (3.5-5.0); ALCOHOL 146 mg/dL (NONE DETECTED); ALKALINE PHOSPHATASE 97 U/L (38-126); ANION GAP 13 (5-19); ASPARTATE AMINO TRANSFERASE 28 U/L (14-36); BILIRUBIN,DIRECT 0.3 mg/dL (0.0-0.4); BILIRUBIN,TOTAL 0.4 mg/dL (0.2-1.3); BLOOD UREA NITROGEN 14 mg/dL (7-20); CALCIUM 9.1 mg/dL (8.4-10.2); CARBON DIOXIDE 20 mmol/L (22-30); CHLORIDE 110 mmol/L (98-107); GLUCOSE 115 mg/dL (75-110); POTASSIUM 4.1 mmol/L (3.6-5.0); SODIUM 142.9 mmol/L (137-145); TOTAL PROTEIN 7.6 g/dL (6.3-8.2)
[2019-01-28 10:05] VITALS: BP 121/75
== END 2019-01-28 10:05 | disposition home or self-care (01) ==
LOC: EEVIPCON 06:14 → ER 06:14
DX: S62.339A Displaced fracture of neck of unspecified metacarpal bone, initial encounter for closed fracture (principal); S00.83XA Contusion of other part of head, initial encounter; S20.212A Contusion of left front wall of thorax, initial encounter; F10.920 Alcohol use, unspecified with intoxication, uncomplicated; R07.81 Pleurodynia; Y04.2XXA Assault by strike against or bumped into by another person, initial encounter; Z91.040 Latex allergy status; Z88.3 Allergy status to other anti-infective agents; Z88.6 Allergy status to analgesic agent
CPT/HCPCS: 36415; 70486; 80053; 80307; 84703; 85025; 99284

== ENCOUNTER 2019-01-28 23:41 | Emergency (ER) | payer SELFPAY | END 2019-01-28 23:55 | disposition left against medical advice (07) | LOC: ER 23:41 | DX: Z53.21 Procedure and treatment not carried out due to patient leaving prior to being seen by health care provider (principal) ==

== ENCOUNTER 2019-08-02 07:13 | Emergency (ER) | payer SELFPAY ==
[2019-08-02] MEDS ORDERED: ONDANSETRON 4 MG TAB.RAPDIS PO ONE (08:56)
[2019-08-02 08:57] LABS: ABSOLUTE BASOPHILS # (AUTO) 0.1 10^3/uL (0.0-0.2); ABSOLUTE EOSINOPHILS # (AUTO) 0.2 10^3/uL (0.0-0.6); ABSOLUTE MONOCYTES (AUTO) 0.5 10^3/uL (0.1-1.4); ABSOLUTE NEUT (AUTO) 4.7 10^3/uL (1.7-8.2); BASOPHILS % (AUTO) 1.2 % (0-2); EOSINOPHILS % (AUTO) 2.6 % (0-6); HEMATOCRIT 41.8 % (36.0-47.0); HEMOGLOBIN 14.1 g/dL (12.0-15.5); LYMPHOCYTES % (AUTO) 35.4 % (13-45); MEAN CORPUSCULAR HEMOGLOBIN 31.2 pg (27.0-33.4); MEAN CORPUSCULAR HGB CONC 33.8 g/dL (32.0-36.0); MEAN CORPUSCULAR VOLUME 92 fl (80-97); MONOCYTES % (AUTO) 5.3 % (3-13); PLATELET COUNT 292 10^3/uL (150-450); RED BLOOD COUNT 4.53 10^6/uL (3.72-5.28); RED CELL DISTRIBUTION WIDTH 12.2 % (11.5-14.0); SEGMENTED NEUTROPHILS % (AUTO) 55.5 % (42-78); TOTAL CELLS COUNTED % (AUTO) 100 %; WHITE BLOOD COUNT 8.5 10^3/uL (4.0-10.5)
--- NOTE | 2019-08-02 09:15 | ER Document Report ---
ED General - General Chief Complaint: Suicidal Ideation Stated Complaint: SUICIDE ATTEMPT Time Seen by Provider: 08/02/19 08:36 Notes: 39-year-old female presents with suicidal attempt. At around 6 AM patient took 5 tablets of her Trileptal 300 mg and 1 beer and cut her left forearm. Patient stated to EMS and to RN that she was attempting to harm herself due to issues with her boyfriend. Patient is currently on 24-hour papers. Patient also states she is having nausea with dry heaving. Patient states she also has left great toe pain from hitting her toe against a table 2 days ago. Patient denies any other pain. TRAVEL OUTSIDE OF THE [place] IN LAST 30 DAYS: No - Related Data Allergies/Adverse Reactions: haloperidol [From Haldol] Allergy (Severe, Verified 11/15/18 21:41) ziprasidone [From Geodon] Allergy (Severe, Verified 11/15/18 21:41) aspirin Allergy (Verified 11/15/18 21:41) cephalexin [From Keflex] Allergy (Verified 11/15/18 21:41) clindamycin Allergy (Verified 11/15/18 21:41) hydrocodone Allergy (Verified 11/15/18 21:41) hydroxyzine [From Vistaril] Allergy (Verified 11/15/18 21:41) latex Allergy (Verified 11/15/18 21:41) levofloxacin [From Levaquin] Allergy (Verified 11/15/18 21:41) naproxen Allergy (Verified 11/15/18 21:41) sulfamethoxazole [From Bactrim] Allergy (Verified 11/15/18 21:41) trimethoprim [From Bactrim] Allergy (Verified 11/15/18 21:41) citalopram [From Celexa] Adverse Reaction (Verified 11/15/18 21:41) Past Medical History - Social History Smoking Status: Never Smoker Chew tobacco use (# tins/day): No Frequency of alcohol use: Occasional Drug Abuse: None Family History: Reviewed & Not Pertinent Patient has suicidal ideation: Yes Patient has homicidal ideation: No - Past Medical History Cardiac Medical History: Denies: Hx Coronary Artery Disease, Hx Heart Attack, Hx Hypertension Pulmonary Medical History: Reports: Hx Asthma, Hx Pneumonia - WALKING PNEUMONIA YEARS AGO Denies: Hx Bronchitis, Hx COPD Neurological Medical History: Reports: Hx Seizures. Denies: Hx Cerebrovascular Accident Renal/ Medical History: Reports: Hx Ectopic . Denies: Hx Peritoneal Dialysis GI Medical History: Reports: Hx Irritable Bowel Musculoskeletal Medical History: Reports Hx Arthritis - POLY RA, FIBROMYALGIA, Reports Hx Fibromyalgia Psychiatric Medical History: Reports: Hx Bipolar Disorder, Hx Depression Past Surgical History: Reports: Hx Breast Surgery - biopsy on L breast, Hx Oral Surgery - wisdom - Immunizations Immunizations up to date: Yes Hx Diphtheria, Pertussis, Tetanus Vaccination: Yes Review of Systems - Review of Systems Notes: Constitutional: Negative for fever. HENT: Negative for sore throat. Eyes: Negative for visual changes. Cardiovascular: Negative for chest pain. Respiratory: Negative for shortness of breath. Gastrointestinal: Negative for abdominal pain, vomiting or diarrhea. Genitourinary: Negative for dysuria. Musculoskeletal: Positive for left great toe pain. Negative for back pain. Skin: Positive for lacerations to left forearm. Negative for rash. Neurological: Negative for headaches, weakness or numbness. Psych: Positive for SI. 10 point ROS negative except as marked above and in HPI. Physical Exam - Vital signs Vitals: Temp Pulse Resp BP Pulse Ox 97.8 F 84 16 112/68 99 08/02/19 07:17 08/02/19 07:17 08/02/19 07:17 08/02/19 07:17 08/02/19 07:17 - Notes Notes: GENERAL: Well-appearing, well-nourished and tearful. HEAD: Atraumatic, normocephalic. EYES: Extraocular movements intact, sclera anicteric, conjunctiva are normal. NECK: Normal range of motion, supple without lymphadenopathy or JVD. ABDOMEN: Soft, nontender. No guarding, no rebound. No masses appreciated. EXTREMITIES: Normal range of motion, no pitting or edema. No clubbing or cyanosis. Left foot: Left great toe is swollen. Not hot to touch. Cap refill < 2 sec. Distal pedal pulses 2+. NEUROLOGICAL: Cranial nerves II through XII grossly intact. Normal speech, normal gait. PSYCH: Depressed mood. SI. SKIN: Multiple superficial lacerations to left forearm. Warm, Dry, normal turgor, no rashes or lesions noted. Course - Re-evaluation Re-evalutation: 08/02/19 31-year-old female presents with SI. Patient took 5 tablets of her Trileptal 300 mg, 1 beer, and cut her left forearm at approximately 6 AM. Patient is also having pain with left great toe. Patient states she hit it against her table 2 days ago. X-ray of the left foot was ordered. Patient is also complaining of nausea with dry heaving. Zofran was ordered. 08/02/19 09:15 Spoke to Danyelle at [facility]. 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 Treat with IV fluids and benzos. States need 4-hour post ingestion tylenol and salicylate. State observe pt 6-8 hours post ingestion ([id number]). 08/02/19 11:00 Pt's lab is reassuring. UDS + amphetamine. Alcohol is 95. 08/02/19 14:43 patient has been observed for 6 to 8 hours postingestion. Patient is medically cleared at this point. - Vital Signs Vital signs: Temp Pulse Resp BP Pulse Ox 97.8 F 84 16 112/68 99 08/02/19 07:17 08/02/19 07:17 08/02/19 07:17 08/02/19 07:17 08/02/19 07:17 - Laboratory Result Diagrams: 08/02/19 08:34 08/02/19 08:34 Laboratory results interpreted by me: 08/02/19 08/02/19 08/02/19 07:25 08:34 10:45 Urine Blood SMALL H Salicylates < 1.0 L < 1.0 L Acetaminophen < 10 L < 10 L Discharge - Discharge Clinical Impression: Suicidal ideation, Self-harm Overdose Qualifiers: Encounter type: initial encounter Injury intent: intentional self-harm Qualified Code(s): T50.902A - Poisoning by unspecified drugs, medicaments and biological substances, intentional self-harm, initial encounter Sprain of left great toe Qualifiers: Encounter type: initial encounter Qualified Code(s): S93.502A - Unspecified sprain of left great toe, initial encounter Condition: Stable Disposition: PSYCH HOSP/UNIT
[2019-08-02 09:17] LABS: ALBUMIN 4.3 g/dL (3.5-5.0); ALCOHOL 95 mg/dL (NONE DETECTED); ALKALINE PHOSPHATASE 78 U/L (38-126); ANION GAP 12 (5-19); ASPARTATE AMINO TRANSFERASE 28 U/L (14-36); BILIRUBIN,DIRECT 0.3 mg/dL (0.0-0.4); BILIRUBIN,TOTAL 0.3 mg/dL (0.2-1.3); BLOOD UREA NITROGEN 11 mg/dL (7-20); CALCIUM 9.3 mg/dL (8.4-10.2); CARBON DIOXIDE 28 mmol/L (22-30); CHLORIDE 103 mmol/L (98-107); GLUCOSE 75 mg/dL (75-110); POTASSIUM 3.8 mmol/L (3.6-5.0); TOTAL PROTEIN 7.6 g/dL (6.3-8.2)
[2019-08-02 09:19] LABS: ACETAMINOPHEN < 10 ug/mL (10-30); SALICYLATE < 1.0 mg/dL (2.0-20.0)
[2019-08-02 09:42] LABS: APPEARANCE,URINE CLEAR; BILIRUBIN,URINE NEGATIVE (NEGATIVE); COLOR,URINE STRAW; GLUCOSE, URINE NEGATIVE (NEGATIVE); KETONES,URINE NEGATIVE (NEGATIVE); LEUKOCYTE ESTERASE,URINE NEGATIVE (NEGATIVE); NITRITE,URINE NEGATIVE (NEGATIVE); PROTEIN,URINE NEGATIVE (NEGATIVE); URINE SPECIFIC GRAVITY 1.008; UROBILINOGEN,URINE NEGATIVE mg/dL (<2.0)
[2019-08-02 09:49] LABS: URINE BARBITURATES SCREEN NEGATIVE; URINE BENZODIAZEPINES SCREEN NEGATIVE; URINE COCAINE SCREEN NEGATIVE; URINE MARIJUANA (THC) SCREEN NEGATIVE; URINE METHADONE SCREEN NEGATIVE
[2019-08-02 09:52] LABS: URINE PHENCYCLIDINE SCREEN NEGATIVE
[2019-08-02 09:53] LABS: URINE AMPHETAMINES SCREEN UNCONFIRMED POSITIVE
--- NOTE | 2019-08-02 10:27 | RADIOLOGY REPORT (SQ) ---
EXAM DESCRIPTION: FOOT LEFT 2 VIEWS COMPLETED DATE/TIME: 08/02/2019 9:43 am REASON FOR STUDY: left great toe pain/injury x 2 days COMPARISON: None. NUMBER OF VIEWS: Two views. TECHNIQUE: AP and lateral radiographic images acquired of the left foot. LIMITATIONS: None. FINDINGS: MINERALIZATION: Normal. BONES: No acute fracture or dislocation. No worrisome bone lesions. JOINTS: No effusions. SOFT TISSUES: No soft tissue swelling. No foreign body. OTHER: No other significant finding. IMPRESSION: NEGATIVE STUDY OF THE LEFT FOOT. NO RADIOGRAPHIC EVIDENCE OF ACUTE INJURY. TECHNICAL DOCUMENTATION: JOB ID: [id number] [employer]- All Rights Reserved Reading location - IP/workstation name: [email or web address]
[2019-08-02 11:14] LABS: ACETAMINOPHEN < 10 ug/mL (10-30); SALICYLATE < 1.0 mg/dL (2.0-20.0)
[2019-08-02] MEDS ORDERED: ACETAMINOPHEN 325 MG TABLET PO ONE (11:59)
--- NOTE | 2019-08-02 13:05 | PSYCHOLOGICAL NOTE ---
Psych Note - Psych Note Date seen by psych provider: 08/02/19 Time seen by psych provider: 08:50 Psych Note: Patient is a 39-year-old female who presents to ED via EMS for possible overdose/SI. Patient is known to behavioral health. Patient is generally a poor historian. Patient states she is "miserable." Patient reports she takes 3 Trileptal pills per day. Patient reports taking 5 pills today. Patient states she became angry when her "asshole of a boyfriend cut my phone off." Patient spoke of boyfriend "lying and cheating." Patient states she "lives at a program on [address]." Patient states she does not like the program. Patient states she is also upset because she has court on Saturday. Patient states she has not been able to take her medications due to lack of resources. Patient states she is no longer linked with a mental health provider or [facility]. When asked why she is no longer receiving services through [facility], patient responded "I don't know." Patient stated her father in May, which is compounding her distress. Per verbal report from nurse, patient was wincing in pain as the EKG electrodes were be placed on her body. Clinician observes patient speaks in an almost hyperventalized state. Clinician notes hearing patient whimpering and moaning with emotion. Patient's urine drug screen is positive for ETOH (JAMES 95) and Amphetamines. Per verbal report from nurse, patient called her boyfriend and stated she ate banana bread and is going into shock. Nurse observed patient's unopened piece of banana bread on her food tray. Nurse removed banana bread from patient's room. Clinician checked in with patient. Patient was eating when clinician entered the room. Informed patient of pending discharge. Patient began crying. Patient stated she needed "inpatient" and "didn't want to go home." Clinician asked patient what concerns she had that she felt could only be addressed by inpatient hospitalization. After a long pause, patient replied "for my substance abuse issues and to quit hurting myself." Patient inquired again regarding services she was linked with prior. 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 Clinician offered to contact [facility] for availability. [facility] did not have a female bed available. Clinician provided patient with community mental health resource list and highlighted mobile crisis and requested patient go ahead and make contact with mobile crisis. Updated 5:15- Spoke with Destiny with [facility] who has a long history with patient. Destiny stated she was there during the EMS call. Patient refused services and refused treatment until Destiny told her it was not an option. Destiny believes [facility] [employer] is paying for patient's apartment, which is also 2 doors down from her exboyfriend and his new girlfriend. Destiny has attempted to help patient renew Medicaid but patient threw the Medicaid form in the trash. 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 Destiny states patient has "burned a lot of bridges" with respect to social media specialist. Impression/Plan: Patient is cleared from acute psychiatric services. Patient reports suicidal gesture overdosing on 5 pills of her Triliptal. Toxicology and laboratory screenings do not support an overdose; however, she was positive for amphetamines and had an ETOH of 95. The patient is need of therapeutic intervention to teach coping skills through an outpatient mental health setting. Patient presents with social issues and substance abuse (amphetamines). Patient has a well documented history of this type of behavior. Clinician left a message for Destiny with [facility] to place referral. Patient was provided with the contact information to [facility] for linkage at discharge. Dr. Cleveland was consulted on the care and management of this patient; attending physician is in agreement with recommendations and disposition.
[2019-08-02 16:52] VITALS: BP 110/66
--- NOTE | 2019-08-02 18:29 | EKG REPORT ---
SEVERITY:- NORMAL ECG - SINUS RHYTHM : Confirmed by: Sylvia Lisa MD 02-Aug-2019 18:29:33
== END 2019-08-02 16:43 | disposition home or self-care (01) ==
LOC: ER 07:13 → EEVIPCON 07:13 → ER 16:43
DX: T42.1X2A Poisoning by iminostilbenes, intentional self-harm, initial encounter (principal); T51.0X2A Toxic effect of ethanol, intentional self-harm, initial encounter; S51.812A Laceration without foreign body of left forearm, initial encounter; X78.9XXA Intentional self-harm by unspecified sharp object, initial encounter; S93.502A Unspecified sprain of left great toe, initial encounter; W22.03XA Walked into furniture, initial encounter; R11.0 Nausea; J45.909 Unspecified asthma, uncomplicated; R56.9 Unspecified convulsions; Z79.899 Other long term (current) drug therapy; Z88.8 Allergy status to other drugs, medicaments and biological substances; Z63.0 Problems in relationship with spouse or partner; Z63.4 Disappearance and death of family member; Z88.1 Allergy status to other antibiotic agents; Z88.6 Allergy status to analgesic agent; Z88.5 Allergy status to narcotic agent; Z91.040 Latex allergy status
CPT/HCPCS: 93005; 99285; 36415; 80307 ×4; 85025; 80053; 81001; 73620; 93010; S0119

== ENCOUNTER 2020-01-27 20:33 | Emergency (ER) | payer SELFPAY ==
[2020-01-27] MEDS ORDERED: CHLORPROMAZINE HCL INJ 25 MG/1 ML AMPULE IM ONE (21:00)
[2020-01-27] MEDS ORDERED: CHLORPROMAZINE HCL INJ 25 MG/1 ML AMPULE ONE (21:05)
--- NOTE | 2020-01-27 21:08 | ER Document Report ---
ED Psych Disorder / Suicide - General Chief Complaint: Suicidal Ideation Stated Complaint: SUICIDE ATTEMPT Time Seen by Provider: 01/27/20 20:49 Mode of Arrival: Medic Information source: Patient Notes: 39-year-old female patient brought in by EMS after cutting her wrist and apparently running out into traffic trying to kill herself. Patient has longstanding psych history. She is tearful, scared. Within 15 minutes of arrival she has already tried eloping from the emergency department by running past the nurses. TRAVEL OUTSIDE OF THE [place] IN LAST 30 DAYS: No - Related Data Allergies/Adverse Reactions: haloperidol [From Haldol] Allergy (Severe, Verified 11/15/18 21:41) ziprasidone [From Geodon] Allergy (Severe, Verified 11/15/18 21:41) aspirin Allergy (Verified 11/15/18 21:41) banana Allergy (Verified 08/02/19 15:32) cephalexin [From Keflex] Allergy (Verified 11/15/18 21:41) clindamycin Allergy (Verified 11/15/18 21:41) hydroxyzine [From Vistaril] Allergy (Verified 11/15/18 21:41) kiwi Allergy (Verified 08/02/19 15:32) latex Allergy (Verified 11/15/18 21:41) levofloxacin [From Levaquin] Allergy (Verified 11/15/18 21:41) naproxen Allergy (Verified 11/15/18 21:41) papaya Allergy (Verified 08/02/19 15:32) walnut Allergy (Verified 08/02/19 15:32) citalopram [From Celexa] Adverse Reaction (Verified 11/15/18 21:41) Past Medical History - General Cannot obtain history due to: Uncooperative - Social History Smoking Status: Unknown if Ever Smoked Drug Abuse: Cocaine, Marijuana Family History: Reviewed & Not Pertinent Patient has homicidal ideation: No - Past Medical History Cardiac Medical History: Denies: Hx Coronary Artery Disease, Hx Heart Attack, Hx Hypertension Pulmonary Medical History: Reports: Hx Asthma, Hx Pneumonia - WALKING PNEUMONIA YEARS AGO Denies: Hx Bronchitis, Hx COPD Neurological Medical History: Reports: Hx Seizures. Denies: Hx Cerebrovascular Accident Renal/ Medical History: Reports: Hx Ectopic . Denies: Hx Peritoneal Dialysis GI Medical History: Reports: Hx Irritable Bowel Musculoskeletal Medical History: Reports Hx Arthritis - POLY RA, FIBROMYALGIA, Reports Hx Fibromyalgia Psychiatric Medical History: Reports: Hx Bipolar Disorder, Hx Depression Past Surgical History: Reports: Hx Breast Surgery - biopsy on L breast, Hx Oral Surgery - wisdom - Immunizations Immunizations up to date: Yes Hx Diphtheria, Pertussis, Tetanus Vaccination: Yes Review of Systems - Review of Systems -: Yes ROS unobtainable due to patient's medical condition - patient with strong smell of ETOH and is delusional Physical Exam - Vital signs Vitals: Temp Pulse Resp BP Pulse Ox 98.2 F 114 H 16 112/73 100 01/27/20 20:54 01/27/20 20:54 01/27/20 20:54 01/27/20 20:54 01/27/20 20:54 - Notes Notes: PHYSICAL EXAMINATION: GENERAL: Disheveled, unkempt. HEAD: Atraumatic, normocephalic. EYES: Pupils equal round and reactive to light, extraocular movements intact, conjunctiva are normal. ENT: Nares patent, oropharynx clear without exudates. Moist mucous membranes. NECK: Normal range of motion, supple without lymphadenopathy LUNGS: Breath sounds clear to auscultation bilaterally and equal. No wheezes rales or rhonchi. HEART: Regular rate and rhythm without murmurs ABDOMEN: Soft, nontender, nondistended abdomen. No guarding, no rebound. No masses appreciated. Female : deferred Musculoskeletal: Normal range of motion, no pitting or edema. No cyanosis. NEUROLOGICAL: Cranial nerves grossly intact. Normal sensory, motor exams PSYCH: Agitated, uncooperative, combative SKIN: 3 cm laceration to left wrist, small amount of adipose tissue noted. No active bleeding. Course - Re-evaluation Re-evalutation: Patient was very uncooperative when she arrived to the emergency department. IVC petition initiated. She tried eloping multiple times. She tried fighting with security. She has multiple medication allergies listed. We chose to give her 50 mg of IM Thorazine. Patient has no listed allergy to Thorazine. When the nurse went to go get the medication the patient started screaming that she was allergic to it. She keeps screaming 50 mg of IM Thorazine was given. Patient did not have any allergic reaction to it. However it did not stop her aggressive behavior. She was subsequently given 2 mg of Ativan IM and 100 mg of ketamine IM. This did ultimately calm her down. She was placed in restraints for short amount of time restraints were removed once the medications were working. She does have a laceration to her left wrist that will need repair, we will wait until she is calmed down to perform this. 01/28/20 07:04 Laceration to left forearm repaired. See procedure note. Patient tolerated well. 01/28/20 08:05 Handoff given to Yaw Swartz NP. UA has not been collected yet. Patient laceration repaired. She is still drowsy but arousable to verbal stimuli. - Vital Signs Vital signs: Temp Pulse Resp BP Pulse Ox 98.3 F 98 16 97/58 L 96 01/28/20 06:50 01/28/20 06:50 01/28/20 06:50 01/28/20 06:50 01/28/20 06:50 - Laboratory Result Diagrams: 01/27/20 21:30 01/27/20 21:30 Laboratory results interpreted by me: 01/27/20 21:30 Chloride 109 H Carbon Dioxide 20 L Glucose 111 H Salicylates < 1.0 L Acetaminophen < 10 L - EKG Interpretation by Ca EKG shows normal: Sinus rhythm Rate: Normal Rhythm: NSR When compared to previous EKG there are: No significant change - No ST segment elevations or depressions to suggest ischemia. Procedures - Laceration/Wound Repair Left wrist Wound length (cm): 3 Wound's Depth, Shape: Superficial Laceration pre-procedure: Sterile PPE donned Anesthetic type: 1% Lidocaine Suture Size/Type: 4:0 Layer Closure?: No Post-procedure wound care: Sterile dressing applied Post-procedure NV exam normal: Yes Discharge - Discharge Clinical Impression: ETOH abuse, Self-mutilation, Suicidal behavior with attempted self-injury Condition: Stable Disposition: PSYCH HOSP/UNIT Additional Instructions: Laceration Care Your laceration has been sutured to keep the skin edges aligned during healing. The time of suture removal depends on the nature and location of your cut. Please follow the care instructions the doctor has outlined for you and return for further care, according to the schedule you've been given. Keep the wound and dressing clean. Unless you were told otherwise, you may shower daily, blotting the wound dry with a clean, unused towel. At other times, If the dressing gets wet or blood soaked, remove it and blot the wound dry, then reapply a new dressing. Unless you were instructed otherwise, dressings should be changed at least daily. If any signs of infection occur (swelling, redness, increasing tenderness, red streaks, tender lumps in the armpit or groin above the laceration, or fever), see the doctor immediately. RETURN IN 8-10 DAYS FOR SUTURE REMOVAL.
[2020-01-27] MEDS ORDERED: DIPHENHYDRAMINE HCL 50 MG/ML VIAL IV ONE (21:42)
[2020-01-27] MEDS ORDERED: LORAZEPAM INJ 2 MG/1 ML VIAL IM ONE (21:43)
[2020-01-27 21:53] LABS: ABSOLUTE BASOPHILS # (AUTO) 0.1 10^3/uL (0.0-0.2); ABSOLUTE MONOCYTES (AUTO) 0.4 10^3/uL (0.1-1.4); BASOPHILS % (AUTO) 0.8 % (0-2); EOSINOPHILS % (AUTO) 0.3 % (0-6); HEMATOCRIT 41.8 % (36.0-47.0); HEMOGLOBIN 14.1 g/dL (12.0-15.5); LYMPHOCYTES % (AUTO) 40.2 % (13-45); MEAN CORPUSCULAR HEMOGLOBIN 30.8 pg (27.0-33.4); MEAN CORPUSCULAR HGB CONC 33.8 g/dL (32.0-36.0); MEAN CORPUSCULAR VOLUME 91 fl (80-97); MONOCYTES % (AUTO) 5.3 % (3-13); PLATELET COUNT 339 10^3/uL (150-450); RED BLOOD COUNT 4.58 10^6/uL (3.72-5.28); RED CELL DISTRIBUTION WIDTH 12.3 % (11.5-14.0); SEGMENTED NEUTROPHILS % (AUTO) 53.4 % (42-78); TOTAL CELLS COUNTED % (AUTO) 100 %; WHITE BLOOD COUNT 7.4 10^3/uL (4.0-10.5)
[2020-01-27 22:10] LABS: ALBUMIN 4.8 g/dL (3.5-5.0); ALCOHOL 222 mg/dL (NONE DETECTED); ALKALINE PHOSPHATASE 71 U/L (38-126); ANION GAP 13 (5-19); ASPARTATE AMINO TRANSFERASE 25 U/L (14-36); BILIRUBIN,TOTAL 0.3 mg/dL (0.2-1.3); BLOOD UREA NITROGEN 8 mg/dL (7-20); CALCIUM 9.3 mg/dL (8.4-10.2); CARBON DIOXIDE 20 mmol/L (22-30); CHLORIDE 109 mmol/L (98-107); GLUCOSE 111 mg/dL (75-110); POTASSIUM 4.3 mmol/L (3.6-5.0); TOTAL PROTEIN 8.1 g/dL (6.3-8.2)
[2020-01-27 22:11] LABS: ACETAMINOPHEN < 10 ug/mL (10-30); SALICYLATE < 1.0 mg/dL (2.0-20.0)
[2020-01-27] MEDS ORDERED: KETAMINE HCL INJ 500 MG/10 ML VIAL IM ONE (22:16)
[2020-01-27] MEDS ORDERED: PROCHLORPERAZINE EDISYLATE INJ 10 MG/2 ML VIAL IM ONE ×2 (22:16→22:17)
[2020-01-28] MEDS ORDERED: LIDOCAINE 1% INJ-PF (10 MG/ML) 30 ML SDV INJ ONE (06:02)
[2020-01-28 12:55] LABS: APPEARANCE,URINE CLOUDY; BILIRUBIN,URINE NEGATIVE (NEGATIVE); COLOR,URINE YELLOW; GLUCOSE, URINE NEGATIVE (NEGATIVE); KETONES,URINE NEGATIVE (NEGATIVE); LEUKOCYTE ESTERASE,URINE NEGATIVE (NEGATIVE); NITRITE,URINE NEGATIVE (NEGATIVE); PROTEIN,URINE 30 mg/dL (NEGATIVE); URINE SPECIFIC GRAVITY 1.021; UROBILINOGEN,URINE NEGATIVE mg/dL (<2.0)
[2020-01-28 13:06] LABS: URINE BARBITURATES SCREEN NEGATIVE; URINE BENZODIAZEPINES SCREEN NEGATIVE; URINE COCAINE SCREEN NEGATIVE; URINE MARIJUANA (THC) SCREEN NEGATIVE; URINE METHADONE SCREEN NEGATIVE; URINE PHENCYCLIDINE SCREEN NEGATIVE
[2020-01-28 13:07] LABS: URINE AMPHETAMINES SCREEN UNCONFIRMED POSITIVE
--- NOTE | 2020-01-28 13:18 | EKG REPORT ---
SEVERITY:- OTHERWISE NORMAL ECG - SINUS RHYTHM BORDERLINE LEFT AXIS DEVIATION : Confirmed by: Binh Dennison MD 28-Jan-2020 13:18:03
--- NOTE | 2020-01-28 13:29 | ER Document Report ---
Doctor's Note Notes: 01/28/20 13:28 Patient alert and oriented x3. Ambulating in the department. Offers no complaints at this time. Pending psych evaluation 01/28/20 14:21 Patient has been cleared by mental health Renny Canseco for discharge. IVC has been rescinded. Patient will be discharged home via cab. No other concerns or complaints at this time. Discharge - Discharge Clinical Impression: ETOH abuse, Self-mutilation, Suicidal behavior with attempted self-injury, Borderline personality disorder, Laceration of left wrist Condition: Stable Disposition: HOME, SELF-CARE Instructions: Laceration Care ([facility]) Additional Instructions: You have been evaluated both medical and behavioral health teams have been deemed appropriate for discharge. Please continue working with your outpatient mental health provider. You are highly encouraged to refrain from using illegal substances and alcohol as this can increase your mental health symptoms. You are encouraged to follow through with substance abuse treatment. Please continue working with [employer] for your housing needs. Laceration Care Your laceration has been sutured to keep the skin edges aligned during healing. The time of suture removal depends on the nature and location of your cut. Please follow the care instructions the doctor has outlined for you and return for further care, according to the schedule you've been given. Keep the wound and dressing clean. Unless you were told otherwise, you may shower daily, blotting the wound dry with a clean, unused towel. At other times, If the dressing gets wet or blood soaked, remove it and blot the wound dry, then reapply a new dressing. Unless you were instructed otherwise, dressings should be changed at least daily. If any signs of infection occur (swelling, redness, increasing tenderness, red streaks, tender lumps in the armpit or groin above the laceration, or fever), see the doctor immediately. RETURN IN 8-10 DAYS FOR SUTURE REMOVAL. ACUTE ALCOHOL INTOXICATION and ALCOHOL ABUSE: Your evaluation revealed very high levels of alcohol. You can from drinking a large amount of alcohol rapidly! Further, there's the risk of falls, traffic accidents, and fights. A high portion (about 50 percent) of the serious injuries seen in hospital emergency rooms are caused by alcohol. Alcohol overdosage is usually due to an underlying emotional or psychiatric problem. You may benefit from counselling. If "binge" drinking is an ongoing problem for you, or if you drink ANY AMOUNT of alcohol EVERY day, you most likely have a tendency to alcoholism. You should avoid alcohol totally. We can refer you for treatment. Persons with alcohol problems are often also prone to other addictions -- you should discuss any use of medications or drugs with the doctor. You should be watched at home for the next several hours by someone who has not been drinking. Get extra fluids for the next 24 hours. Call the doctor if there is repeated vomiting, increasing headache, decreasing level of alertness, or any other worsening. CHRONIC ALCOHOLISM and ALCOHOL ABUSE: Your evaluation reveals evidence of chronic alcoholism, an addiction to alcohol. The tendency to alcoholism may be inherited. Chronic use of alcohol weakens muscles, causes fatty deposits in the liver, damages the stomach, makes you more prone to infections, and can cause defects in unborn children. In the long run, brain atrophy and cirrhosis of the liver result. You are also at greater risk for certain types of cancer, such as cancer of the mouth, throat, stomach, and liver. Counselling services are available to help you. In-hospital treatment programs often help. Support groups such as Alcoholics Anonymous can be very useful in beating this addiction. Your physician can make a referral for you. As alcoholics often are prone to other addictions, you should discuss your use of any other medications with the doctor. ALCOHOL WITHDRAWAL: Your symptoms are caused by alcohol withdrawal. After a period of frequent drinking, the brain and body are changed by the alcohol. When you quit or reduce your drinking, the nervous system becomes unstable. Withdrawal symptoms can start a few hours after your last drink, but sometimes don't begin until a couple of days later. Symptoms can include shakiness, sweating, insomnia, nausea, vomiting, fearfulness, hallucinations, and seizures. In addition to the acute effects of alcohol withdrawal, we often have to deal with the medical effects of alcoholism. These problems often include dehydration, stomach irritation, intestinal bleeding, low blood sugar, liver disease, and pancreas inflammation. Treatment for alcohol withdrawal includes mild sedatives, vitamins, and fluids. You need to be with someone who can help if symptoms become severe. Many patients can withdraw at home. Admission to the hospital or a detox facility may be necessary if withdrawal symptoms are severe and uncontrollable. Abstaining from alcohol is the only effective long-term treatment. If you start drinking again, you will not be able to control yourself after the first drink. Treatment programs are available. In addition, many alcoholics benefit from Alcoholics Anonymous or other support groups available through your counselor or latter-day railroader. [employer] and [facility] are support groups for friends and family members of an alcoholic. Go to the emergency room if you develop persistent vomiting, severe abdominal pain, fever, shortness of breath, hallucinations, uncontrollable tremors, or seizures. AMPHETAMINE / METHAMPHETAMINE ABUSE: Amphetamines are addicting stimulants. Amphetamines overstimulate the nervous system and give a false feeling of power and mastery. These drugs may be obtained as prescription pills for weight loss, narcolepsy, or attention-deficit disorder. More often they're bought as an illegal street drug, methamphetamine (crank, crystal, speed). Using amphetamines repeatedly can lead to serious medical problems including malnutrition, severe depression, and paranoia. It can take increasing amounts to feel good. Eventually, there will be a "burn out." When you go off amphetamines there is a period of depression that may last for weeks or even months. High doses of amphetamines can cause seizures, confusion, hallucinations, delusions, high blood pressure, muscle damage, heart damage, or sudden . Many times these deadly complications occur even with "normal" doses. Injection of amphetamines is risky for developing abscesses, endocarditis (heart infection), pneumonia, and AIDS. Withdrawal from amphetamines often causes anxiety, depression, and drug cravings. Some users become paranoid and psychotic. There may be cramps, nausea, and vomiting. Many treatment programs are available, but you must make the decision to quit. Medication can be prescribed to control the symptoms of amphetamine toxicity (beta blockers or benzodiazepines). Withdrawal symptoms may require tranquilizers. DEPRESSION: Your evaluation reveals that you have mental depression. While symptoms may be vague, they often include disturbance of sleep, fatigue, loss of appetite, and general loss of interest in life. While depression may be a side effect of drugs, or a reaction to a major change in your life, many cases have no known cause. If depression is acute, and related to a major loss in your life, you can expect it to clear completely with time. If you have been depressed a long time, are prone to repeated bouts of depression or low mood, or have been thinking of suicide, get help. Depression can be treated with anti-depressant medication and counselling. Long-term depression will often take a few weeks to clear, even with appropriate medication. Follow-up care is important. SUICIDAL IDEATION: Suicidal ideation is a common medical term for thoughts about suicide, which may be as detailed as a formulated plan, without the suicidal act itself. Although most people who undergo suicidal ideation do not commit suicide, some go on to make suicide attempts. The range of suicidal ideation varies greatly from fleeting to detailed planning, role playing, and unsuccessful attempts. While thoughts about suicide are common, most people do not carry out serious actions to commit suicide. Based upon your evaluation and discussion with you, we do not believe you are currently at risk to act upon your thoughts of suicide. You have agreed to return to the Emergency Department, at any time, if you feel inclined to act upon your suicidal thoughts. FOLLOW-UP CARE: If you have been referred to a physician for follow-up care, call the physicians office for an appointment as you were instructed or within the next two days. If you experience worsening or a significant change in your symptoms, notify the physician immediately or return to the Emergency Department at any time for re-evaluation. Suture removal in 8 to 10 days. Referrals: [facility] [Outside] - Follow up as needed [facility] [Outside] - Follow up in 3-5 days
[2020-01-28 14:36] VITALS: BP 108/71
== END 2020-01-28 14:43 | disposition home or self-care (01) ==
LOC: ER 20:33
DX: S61.512A Laceration without foreign body of left wrist, initial encounter (principal); X78.1XXA Intentional self-harm by knife, initial encounter; F10.10 Alcohol abuse, uncomplicated; F60.3 Borderline personality disorder; F14.10 Cocaine abuse, uncomplicated; F12.10 Cannabis abuse, uncomplicated; J45.909 Unspecified asthma, uncomplicated; Z88.8 Allergy status to other drugs, medicaments and biological substances; Z91.018 Allergy to other foods; Z88.1 Allergy status to other antibiotic agents; Z91.040 Latex allergy status; Z78.1 Physical restraint status
CPT/HCPCS: 93005; 99284; 96372; 96374; 96375; 36415; 80307 ×4; 84703; 85025; 80053; 81001; 93010; 12002; J3230; J1200; J3490 ×2; J2060; J0780

== ENCOUNTER 2020-04-23 11:17 | Emergency (ER) | payer SELFPAY ==
[2020-04-23] MEDS ORDERED: HYDROCODONE/ACETAMINOPHEN 5-325 MG TABLET PO ONE (11:58)
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
[2020-04-23] MEDS ORDERED: OXYCODONE-ACETAMINOPHEN 5-325 MG TABLET PO ONE (12:12)
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
[2020-04-23 13:17] VITALS: BP 126/83
== END 2020-04-23 13:17 | disposition home or self-care (01) ==
LOC: ER 11:17
DX: M54.5 Low back pain (principal); S20.221A Contusion of right back wall of thorax, initial encounter; Y08.89XA Assault by other specified means, initial encounter; Y93.89 Activity, other specified; J45.909 Unspecified asthma, uncomplicated; Z88.6 Allergy status to analgesic agent; Z88.5 Allergy status to narcotic agent
CPT/HCPCS: 72070; 72110; 96374; 99285